=== PATIENT | female | born 1975 | race Caucasian/White ===

== ENCOUNTER 2020-02-23 06:41 | Outpatient (CLI) | payer MEDICARE, MEDICAID, OTHER ==
[2020-02-23 16:34] LABS: #Lymphocytes 1.8 thou/uL (1.20-3.40); #Monocytes 0.2 thou/uL (0.11-0.59); #Neutrophils 2.1 thou/uL (1.40-6.50); %Basophils 0.9 % (0.0-1.0); %Eosinophils 0.8 % (0.0-10.0); %Lymphocytes 42.3 % (21.0-51.0); %Monocytes 4.9 % (0.0-10.0); %Neutrophils 51.1 % (42.0-75.0); Hemoglobin 12.3 g/dL (12.0-16.0); Mean Corpuscular HGB CONC 33.4 g/dL (32.0-36.0); Mean Corpuscular Hemoglobin 28.9 pg (27.0-31.0); Mean Corpuscular Volume 86.3 fL (78.0-98.0); Mean Platelet Volume 6.8 fL (7.4-10.4); Platelet Count 235 thou/uL (130-400); RBC Distribution Width 12.5 % (11.5-14.5); Red Blood Cell (RBC) Count 4.28 mill/uL (4.20-5.40); White Blood Cell (WBC) Count 4.2 thou/uL (4.8-10.8)
[2020-02-23 16:50] LABS: Anion Gap 17 mmol/L (10-20); BUN (Urea Nitrogen) 6 mg/dL (7.0-18.7); Calc. Creatinine Clearance 0 mL/min (70-130); Calcium 7.6 mg/dL (7.8-10.44); Carbon Dioxide 29 mmol/L (22-29); Chloride 98 mmol/L (98-107); Estimated GFR-MDRD 68; Glucose 114 mg/dL (70-105); Potassium 3.3 mmol/L (3.5-5.1); Sodium 141 mmol/L (136-145)
[2020-02-24 13:47] LABS: SARS-CoV-2 MS2 Positive; SARS-CoV-2 N Gene Negative; SARS-CoV-2 S Gene Negative; SARS-CoV-2 orf1ab Negative
== END 2020-02-23 06:42 | disposition home or self-care (01) ==
LOC: LABBT 06:41
PROVIDERS: ATTEND Orthopaedic Surgery
DX: Z01.818 Encounter for other preprocedural examination (principal); Z11.59 Encounter for screening for other viral diseases; M75.102 Unspecified rotator cuff tear or rupture of left shoulder, not specified as traumatic
CPT/HCPCS: 80048; 85025; U0003; 87635; 93005; 93010

== ENCOUNTER 2020-02-27 06:08 | Day surgery (SDC) | payer MEDICARE, MEDICAID ==
[2020-02-20 17:02] VITALS: BMI 31.1
[2020-02-27] MEDS ORDERED: Fentanyl 100 MCG/2 ML VIAL ONE ×4 (06:44→10:30)
[2020-02-27] MEDS ORDERED: Midazolam HCl 2 mg/2 ml Vial ONE (06:44)
[2020-02-27] MEDS ORDERED: Lidocaine 1% w/Epinephrine 1:100K 20 ML VIAL ONE (07:02)
[2020-02-27] MEDS ORDERED: Clindamycin/D5W 600 mg/50 ml Premix Bag ONE (07:07)
[2020-02-27] MEDS ORDERED: Zolpidem Tartrate 5 MG TAB PO PRN (07:29)
[2020-02-27] MEDS ORDERED: Promethazine HCl 25 MG/ML VIAL IM PRN (07:29)
[2020-02-27] MEDS ORDERED: Ondansetron PF 4 MG/2 ML Vial IVP PRN (07:29)
[2020-02-27] MEDS ORDERED: Ropivacaine 0.2% 550 ML 550 ML NERVE BLCK SCH (07:29)
[2020-02-27] MEDS ORDERED: Fentanyl 100 MCG/2 ML VIAL SLOW IVP PRN (07:30)
[2020-02-27] MEDS ORDERED: Ondansetron PF 4 MG/2 ML Vial ONE (10:47)
[2020-02-27] MEDS ORDERED: Dexamethasone 20 MG/5 ML VIAL ONE (10:47)
[2020-02-27] MEDS ORDERED: Ropivacaine 0.2% HCl/PF (40 MG/20 ML VIAL) ONE (10:47)
[2020-02-27] MEDS ORDERED: Glycopyrrolate 0.2 MG/ML 5 ML SYRINGE ONE (10:47)
[2020-02-27] MEDS ORDERED: Rocuronium Bromide 10 MG/ML (10ML VIAL) ONE (10:47)
[2020-02-27] MEDS ORDERED: EPHEDRINE 25 MG/5 ML SYRINGE ONE (10:47)
[2020-02-27] MEDS ORDERED: Ropivacaine 0.5% HCl/PF (150 MG/30 ML VIAL) ONE (10:47)
[2020-02-27] MEDS ORDERED: PROPOFOL 200 MG/20 ML VIAL ONE (10:47)
[2020-02-27] MEDS ORDERED: Lidocaine 1% PF 5 ML VIAL ONE (10:47)
--- NOTE | 2020-03-01 09:22 | OP ---
DATE OF PROCEDURE: 02/27/2020 PREOPERATIVE DIAGNOSES: Left shoulder impingement, rotator cuff tear, and biceps tendon tearing and instability secondary to a degenerative SLAP tear. POSTOPERATIVE DIAGNOSES: Left shoulder impingement, rotator cuff tear, and biceps tendon tearing and instability secondary to a degenerative SLAP tear. PROCEDURES PERFORMED: 1. Left shoulder arthroscopic rotator cuff tear. 2. Left shoulder open biceps tenodesis. SKILLED NURSING CASE MANAGER: None. ESTIMATED BLOOD LOSS: Minimal. COMPLICATIONS: None. ANESTHESIA: preoperative block. IMPLANTS: A 4.75 BioComposite SwiveLock and a 7 x 23 BioComposite tenodesis screw. DISPOSITION: She did go to recovery room in stable condition. INDICATIONS: This is a 45-year-old female, who comes in complaining of pain and inability to use the arm that has been going on for a number of months. She has failed nonoperative treatment and at this time wished to have surgery. DESCRIPTION OF PROCEDURE: After all appropriate consent forms were explained and signed, she was taken back to the operating room and at this time was given general anesthetic. She was rolled into the right lateral decubitus position and all bony prominences were well padded. Axillary roll was placed underneath the right axilla and a aguillon bag was inflated to hold it in its position. The arm was taken through full range of motion and was then suspended with 10 pounds in standard arthroscopic fashion. The left shoulder and upper extremity were then prepped and draped in standard surgical fashion. Bony anatomical landmarks were drawn out and the subacromial space was then infiltrated with lidocaine and with epinephrine. Posterior portal was established. Scope was placed into the shoulder joint. Anterior working portal was then made using a needle localization technique. Diagnostic arthroscopy then commenced in the glenohumeral joint. At this time, the articular surfaces of the humeral head and glenoid were found to be pristine. The rotator cuff was noted to have some tearing and once it was debrided with a shaver, it was noted to have a punctate full-thickness tear in the back part of the supraspinatus or the leading edge of infraspinatus. The other partial tearing from this area was noted to be less than 30% of the tendon thickness. The labrum was found to be intact anteriorly and posteriorly. Both superior and posterior-superior, there was some significant degenerative labral tearing. There were some large flaps of tissue found into the joint. These were all debrided with a shaver back to a stable base. Subscapularis was intact. There were no loose bodies in the axillary pouch. At this time, a green cannula was placed anteriorly and an 18-gauge needle was used to wilson the biceps tendon and place a stitch through it. We then used the arthroscopic scissors to cut the biceps off the superior labrum. We then redirected the camera into the subacromial space. Lateral working portal was made. Bursa was removed from off the underlying cuff and the full-thickness cuff tear was noted. At this time, a PassPort cannula was placed into the lateral portal and at this time, we took our FiberTape and passed it in an inverted mattress fashion using the Scorpion device and pulled this down laterally for repair using a 4.75 BioComposite SwiveLock device. This closed our tear nicely and there was no need to use the extra suture in the SwiveLock. Prior to performing the rotator cuff repair, a bony decompression was performed using the SERFAS energy and the shaver . At this time, the scope was removed. The shoulder was drained. We then turned our attention to the biceps tendon. A 15 blade was used to make an incision down through skin. Bovie was used to coagulate any brisk venous bleeding. Deltoid fascia was opened sharply and finger dissection was used down to the underlying transverse humeral ligament. This was opened up and there was a copious amount of synovitis in the bicipital groove. This was all removed and coagulated. Biceps tendon was sutured. The intra-articular portion was cut off and removed from the field. At this time, we placed our pin, reamed with a 7-mm reamer to a depth of 25 and placed a 7 x 23 BioComposite Bio-Tenodesis screw in standard fashion. We then tied our sutures, so that the screw could not back out. At this time, we thoroughly irrigated and dried. We allowed the deltoid to close upon itself. The deltoid fascia was closed with Vicryl suture, followed by 2-0 Vicryl and nylon sutures to close the skin. Each portal was closed with simple nylon stitch as well. Bulky sterile dressing was applied. At this time, the patient was awakened and taken to the recovery room in stable condition. All counts were correct at the end of the case. She did receive preoperative IV antibiotics. Job ID: [id number]
== END 2020-02-27 12:10 | disposition home or self-care (01) ==
LOC: SDC 06:08
PROVIDERS: ATTEND Orthopaedic Surgery
PROC: 0LQ24ZZ Repair Left Shoulder Tendon, Percutaneous Endoscopic Approach (ICD-10-PCS; principal; 2020-02-27)
PROC: 0RNK4ZZ Release Left Shoulder Joint, Percutaneous Endoscopic Approach (ICD-10-PCS; 2020-02-27)
PROC: 0LS40ZZ Reposition Left Upper Arm Tendon, Open Approach (ICD-10-PCS; 2020-02-27)
PROC: 0RHK04Z Insertion of Internal Fixation Device into Left Shoulder Joint, Open Approach (ICD-10-PCS; 2020-02-27)
PROC: 3E0T3BZ Introduction of Anesthetic Agent into Peripheral Nerves and Plexi, Percutaneous Approach (ICD-10-PCS; 2020-02-27)
DX: M75.122 Complete rotator cuff tear or rupture of left shoulder, not specified as traumatic (principal); M25.812 Other specified joint disorders, left shoulder; S43.432A Superior glenoid labrum lesion of left shoulder, initial encounter; S46.112A Strain of muscle, fascia and tendon of long head of biceps, left arm, initial encounter; M25.312 Other instability, left shoulder; M81.0 Age-related osteoporosis without current pathological fracture; G89.29 Other chronic pain; F17.210 Nicotine dependence, cigarettes, uncomplicated; Z79.899 Other long term (current) drug therapy; Z88.0 Allergy status to penicillin; Z88.1 Allergy status to other antibiotic agents; Z88.5 Allergy status to narcotic agent; Z88.6 Allergy status to analgesic agent; Z88.8 Allergy status to other drugs, medicaments and biological substances; G89.18 Other acute postprocedural pain
CPT/HCPCS: 23430; 29827; 64416; A4306; C1713 ×2; J1100; J2001; J2250; J2405; J2704; J2795; J3010; J3490

== ENCOUNTER 2024-02-15 20:20 | Inpatient (IN) | payer OTHER, MEDICAID ==
[2024-02-15] MEDS ORDERED: Acetaminophen 500 MG TAB ONE (20:54)
[2024-02-15] MEDS ORDERED: Ketorolac Tromethamine 30 MG (1 mL) VIAL ONE (20:54)
[2024-02-15 21:39] LABS: #Basophils 0.03 10x3/uL (0.0-0.2); %Basophils 0.2 % (0.0-1.0); %Eosinophils 2.5 % (0.0-10.0); %Lymphocytes 17.6 % (21.0-51.0); %Monocytes 3.8 % (0.0-10.0); %Neutrophils 74.9 % (42.0-75.0); Hematocrit 36.5 % (36.0-47.0); Hemoglobin 11.9 g/dL (12.0-16.0); Mean Corpuscular HGB CONC 32.6 g/dL (32.0-36.0); Mean Corpuscular Hemoglobin 27.9 pg (27.0-31.0); Mean Corpuscular Volume 85.7 fL (78.0-98.0); Mean Platelet Volume 9.1 fL (7.4-10.4); Platelet Count 191 10x3/uL (130-400); RBC Distribution Width 16.6 % (11.5-14.5); Red Blood Cell (RBC) Count 4.26 mill/uL (4.20-5.40)
[2024-02-15 21:58] LABS: Acetaminophen Less than 10 mcg/mL (10.0-30.0); Alcohol Less than 10.0 mg/dL (Less than 10); Salicylate Less than 8.0 mg/dL (15.0-30.0)
[2024-02-15 22:07] LABS: Troponin I 0.014 ng/mL (< 0.028)
[2024-02-15 22:07] LABS: Influenza A by NAA Not Detected (NotDetected); Influenza B by NAA Not Detected (NotDetected); SARS-CoV-2 NAA Rapid Test Not Detected (NotDetected)
[2024-02-15 22:13] LABS: ALT (SGPT) 16 U/L (8-55); AST (SGOT) 19 U/L (5-34); Albumin 3.1 g/dL (3.5-5.0); Alkaline Phosphatase 72 U/L (40-110); Anion Gap 12 mmol/L (10-20); BUN (Urea Nitrogen) 8 mg/dL (9.8-20.1); Bilirubin, Total 0.5 mg/dL (0.2-1.2); Calc. Creatinine Clearance 0 mL/min (70-130); Calcium 7.7 mg/dL (7.8-10.44); Carbon Dioxide 22 mmol/L (22-29); Chloride 100 mmol/L (98-107); Estimated GFR 95; Globulin 3.3 g/dL (2.4-3.5); Glucose 100 mg/dL (70-105); Potassium 2.8 mmol/L (3.5-5.1); Protein, Total 6.4 g/dL (6.0-8.3); Sodium 131 mmol/L (136-145)
[2024-02-15 22:22] LABS: CK (CPK) 51 U/L (29-168)
[2024-02-15] MEDS ORDERED: Potassium Chloride 20 MEQ TAB ONE (22:41)
[2024-02-15] MEDS ORDERED: Morphine 4 MG/ML VIAL ONE (22:56)
[2024-02-15 23:59] LABS: Amphetamine Not Detected (NotDetected); Barbiturates Screen Not Detected (NotDetected); Benzodiazepine Screen Detected (NotDetected); Cocaine Metabolite Screen Not Detected (NotDetected); Methadone Not Detected (NotDetected); Methamphetamine Not Detected (NotDetected); Opiate Screen Detected (NotDetected); Oxycodone Screen Not Detected (NotDetected); Phencyclidine (PCP) Not Detected (NotDetected); THC/Cannabinoid Screen Not Detected (NotDetected); Tricyclic Screen Detected (NotDetected)
[2024-02-16 00:22] LABS: Bilirubin Negative (Negative); Blood, Urine Negative (Negative); CAUTI Indications for Culture Dysuria,urgency,freq; Clarity Turbid (Clear); Glucose, Urine (Dipstick) Normal (Negative); Ketone, Urine Negative (Negative); Leukocyte Negative Leu/uL (Negative); Nitrite Negative (Negative); Protein, Urine (Dipstick) Negative (Neg-Trace); RBC/HPF 0-3 HPF (0-3); Specific Gravity, Urine 1.005 (1.002-1.036); Urobilinogen Normal mg/dL (Less than 2); WBC/HPF None Seen HPF (0-3); pH, Urine 5.5 (5.0-9.0)
[2024-02-16 00:38] LABS: Bacteria/HPF 1+ HPF (None Seen); Urine Culture Reflex No No
[2024-02-16 01:23] VITALS: BMI 21.4
[2024-02-16] MEDS ORDERED: Ondansetron ODT 4 MG TAB SL PRN (01:30)
[2024-02-16] MEDS ORDERED: Ondansetron PF 4 MG/2 ML Vial IVP PRN (01:30)
[2024-02-16] MEDS: Sodium Chloride 0.9% 1,000 ML IV SCH (02:13)
[2024-02-16] MEDS ORDERED: Lidocaine 4% Patch TD PRN (02:22)
[2024-02-16] MEDS: Benzonatate 100 MG CAP PO PRN (02:36)
[2024-02-16] MEDS: Acetaminophen 325 MG TAB PO PRN (02:36)
[2024-02-16 08:40] LABS: #Basophils Less than 0.03 10x3/uL (0.0-0.2); %Basophils 0.2 % (0.0-1.0); %Eosinophils 2.7 % (0.0-10.0); %Lymphocytes 33.1 % (21.0-51.0); %Monocytes 5.7 % (0.0-10.0); %Neutrophils 57.6 % (42.0-75.0); Hematocrit 32.8 % (36.0-47.0); Hemoglobin 10.5 g/dL (12.0-16.0); Mean Corpuscular Hemoglobin 29.1 pg (27.0-31.0); Mean Corpuscular Volume 90.9 fL (78.0-98.0); Mean Platelet Volume 9.2 fL (7.4-10.4); Platelet Count 174 10x3/uL (130-400); RBC Distribution Width 17.1 % (11.5-14.5); Red Blood Cell (RBC) Count 3.61 mill/uL (4.20-5.40)
[2024-02-16 09:13] LABS: ALT (SGPT) 13 U/L (8-55); AST (SGOT) 16 U/L (5-34); Albumin 2.6 g/dL (3.5-5.0); Alkaline Phosphatase 61 U/L (40-110); Anion Gap 15 mmol/L (10-20); BUN (Urea Nitrogen) 7 mg/dL (9.8-20.1); Bilirubin, Total 0.3 mg/dL (0.2-1.2); Calc. Creatinine Clearance 93 mL/min (70-130); Calcium 6.9 mg/dL (7.8-10.44); Carbon Dioxide 18 mmol/L (22-29); Chloride 110 mmol/L (98-107); Estimated GFR 110; Globulin 2.8 g/dL (2.4-3.5); Glucose 82 mg/dL (70-105); Magnesium 0.9 mg/dL (1.6-2.6); Phosphorus 2.3 mg/dL (2.3-4.7); Potassium 3.2 mmol/L (3.5-5.1); Protein, Total 5.4 g/dL (6.0-8.3); Sodium 140 mmol/L (136-145)
[2024-02-16] MEDS: HYDROmorphone 2 MG TAB PO SCH (09:15)
[2024-02-16] MEDS ORDERED: HYDROmorphone 2 MG TAB PO PRN (09:35)
[2024-02-16] MEDS ORDERED: Promethazine 25 MG TAB PO PRN ×2 (09:35→09:57)
[2024-02-16] MEDS ORDERED: Calcium Carbonate 500 MG ChewTAB PO PRN (09:56)
[2024-02-16] MEDS ORDERED: Senokot S 8.6-50 MG TAB PO PRN (09:56)
[2024-02-16] MEDS: Ipratropium/Albuterol 3 ML NEB NEB SCH (10:21)
[2024-02-16] MEDS: Magnesium Sulfate In Water 4 GM in Premix 1 BAG IVPB SCH (10:43)
[2024-02-16] MEDS: Pantoprazole DR 40 MG TAB PO SCH (10:43)
[2024-02-16] MEDS: Calcium Carbonate 600 MG + Vit D TAB PO SCH ×2 (10:43→16:49)
[2024-02-16] MEDS: Cefepime 1 GM in Sodium Chloride 0.9% 100 ML IVPB SCH (10:43)
[2024-02-16 10:49] VITALS: BMI 21.4
[2024-02-16] MEDS ORDERED: Potassium Chloride 10 MEQ TAB PO SCH (12:00)
[2024-02-16] MEDS: Potassium Phosphate 30 MMOL in Sodium Chloride 0.9% 250 ML 250 ML IVPB SCH (12:12)
[2024-02-16] MEDS: Potassium Chloride 10 MEQ TAB PO SCH (12:19)
[2024-02-16] MEDS ORDERED: Naloxone HCl 0.4 mg/ml Vial IV PRN (15:31)
[2024-02-16] MEDS: Lactated Ringer's 1,000 ML IV SCH (16:49)
[2024-02-16] MEDS: Vancomycin HCl 750 MG in Sodium Chloride 0.9% 250 ML 250 ML IVPB SCH (16:50)
[2024-02-16] MEDS: diphenhydrAMINE 25 MG CAP PO SCH (17:40)
[2024-02-16] MEDS: Cefepime 2 GM in Sodium Chloride 0.9% 100 ML IVPB SCH (20:06)
[2024-02-16] MEDS: Heparin 5,000 UNITS/ML VIAL SC SCH (20:06)
[2024-02-16] MEDS: HYDROmorphone 2 MG TAB PO PRN (20:07)
[2024-02-16] MEDS ORDERED: Vancomycin 1 GM in Premix 1 BAG IVPB SCH (21:00)
[2024-02-17] MEDS: Acetaminophen 325 MG TAB PO PRN (01:27)
[2024-02-17 01:58] LABS: #Basophils Less than 0.03 10x3/uL (0.0-0.2); %Basophils 0.2 % (0.0-1.0); %Eosinophils 1.8 % (0.0-10.0); %Lymphocytes 22.8 % (21.0-51.0); %Monocytes 5.6 % (0.0-10.0); %Neutrophils 69.2 % (42.0-75.0); Hematocrit 32.4 % (36.0-47.0); Hemoglobin 10.4 g/dL (12.0-16.0); Mean Corpuscular HGB CONC 32.1 g/dL (32.0-36.0); Mean Corpuscular Hemoglobin 28.9 pg (27.0-31.0); Platelet Count 193 10x3/uL (130-400); RBC Distribution Width 17.3 % (11.5-14.5)
[2024-02-17 02:36] LABS: Lactic Acid 1.2 mmol/L (0.5-2.2)
[2024-02-17 04:04] LABS: Vancomycin, Random 12.8 ug/mL (See Comment)
[2024-02-17 04:22] LABS: ALT (SGPT) 7 U/L (8-55); AST (SGOT) 14 U/L (5-34); Albumin 2.8 g/dL (3.5-5.0); Alkaline Phosphatase 53 U/L (40-110); Anion Gap 13 mmol/L (10-20); BUN (Urea Nitrogen) 5 mg/dL (9.8-20.1); Bilirubin, Total 0.3 mg/dL (0.2-1.2); Calc. Creatinine Clearance 93 mL/min (70-130); Calcium 8.2 mg/dL (7.8-10.44); Carbon Dioxide 23 mmol/L (22-29); Chloride 110 mmol/L (98-107); Estimated GFR 110; Globulin 2.9 g/dL (2.4-3.5); Glucose 122 mg/dL (70-105); Magnesium 1.7 mg/dL (1.6-2.6); Phosphorus 1.7 mg/dL (2.3-4.7); Potassium 3.5 mmol/L (3.5-5.1); Protein, Total 5.7 g/dL (6.0-8.3); Sodium 142 mmol/L (136-145)
[2024-02-17] MEDS: Magnesium 2 GM/50 ML(in water) 2 GM in Premix 1 BAG IVPB SCH ×2 (05:17→10:15)
[2024-02-17] MEDS: PHOS-NAK 1 PKT PACK PO SCH (05:17)
[2024-02-17] MEDS: Pantoprazole DR 40 MG TAB PO SCH (09:33)
[2024-02-17] MEDS: Metoprolol Tartrate 25 MG TAB PO SCH ×2 (10:15→22:13)
[2024-02-17] MEDS: DULoxetine 60 MG CAP PO SCH (22:13)
[2024-02-18] MEDS: DULoxetine 60 MG CAP PO SCH (09:29)
[2024-02-18] MEDS ORDERED: Ipratropium/Albuterol 3 ML NEB NEB PRN (10:12)
[2024-02-18 10:34] LABS: #Basophils Less than 0.03 10x3/uL (0.0-0.2); %Basophils 0.3 % (0.0-1.0); %Eosinophils 0.6 % (0.0-10.0); %Lymphocytes 14.8 % (21.0-51.0); %Monocytes 4.5 % (0.0-10.0); %Neutrophils 79.3 % (42.0-75.0); Hematocrit 33.6 % (36.0-47.0); Hemoglobin 10.8 g/dL (12.0-16.0); Mean Corpuscular HGB CONC 32.1 g/dL (32.0-36.0); Mean Corpuscular Hemoglobin 29.2 pg (27.0-31.0); Mean Corpuscular Volume 90.8 fL (78.0-98.0); Mean Platelet Volume 9.2 fL (7.4-10.4); Platelet Count 214 10x3/uL (130-400); RBC Distribution Width 17.4 % (11.5-14.5)
[2024-02-18 10:55] LABS: Anion Gap 14 mmol/L (10-20); BUN (Urea Nitrogen) 4 mg/dL (9.8-20.1); Calc. Creatinine Clearance 100 mL/min (70-130); Calcium 8.2 mg/dL (7.8-10.44); Carbon Dioxide 23 mmol/L (22-29); Chloride 110 mmol/L (98-107); Estimated GFR 111; Glucose 90 mg/dL (70-105); Magnesium 1.8 mg/dL (1.6-2.6); Potassium 3.4 mmol/L (3.5-5.1); Sodium 144 mmol/L (136-145)
[2024-02-18] MEDS ORDERED: Albuterol 200 PUFF (6.7GM INHALER) INH PRN (14:44)
[2024-02-18] MEDS: oxyCODONE/Acetaminophen 5 mg/325 mg Tablet PO PRN (16:57)
[2024-02-18] MEDS: Baclofen 10 MG TAB PO PRN (21:45)
[2024-02-18] MEDS: Fioricet 325/50/40 mg Tablet PO SCH (21:45)
[2024-02-18] MEDS: tiZANidine HCl 4 MG TAB PO PRN (21:46)
[2024-02-18] MEDS: Diazepam 5 MG TAB PO SCH (21:46)
[2024-02-19 04:52] LABS: #Basophils 0.03 10x3/uL (0.0-0.2); %Basophils 0.4 % (0.0-1.0); %Eosinophils 3.7 % (0.0-10.0); %Lymphocytes 29.1 % (21.0-51.0); %Monocytes 7.2 % (0.0-10.0); %Neutrophils 58.9 % (42.0-75.0); Hematocrit 31.3 % (36.0-47.0); Hemoglobin 10.3 g/dL (12.0-16.0); Mean Corpuscular HGB CONC 32.9 g/dL (32.0-36.0); Mean Corpuscular Hemoglobin 29.2 pg (27.0-31.0); Mean Corpuscular Volume 88.7 fL (78.0-98.0); Mean Platelet Volume 9.9 fL (7.4-10.4); Platelet Count 209 10x3/uL (130-400); RBC Distribution Width 17.4 % (11.5-14.5); Red Blood Cell (RBC) Count 3.53 mill/uL (4.20-5.40)
[2024-02-19 05:33] LABS: Vancomycin, Random 20.9 ug/mL (See Comment)
[2024-02-19 05:40] LABS: Anion Gap 12 mmol/L (10-20); BUN (Urea Nitrogen) 8 mg/dL (9.8-20.1); Calc. Creatinine Clearance 89 mL/min (70-130); Calcium 8.8 mg/dL (7.8-10.44); Carbon Dioxide 21 mmol/L (22-29); Chloride 110 mmol/L (98-107); Estimated GFR 108; Glucose 124 mg/dL (70-105); Potassium 3.6 mmol/L (3.5-5.1); Sodium 139 mmol/L (136-145)
[2024-02-19] MEDS: Pantoprazole DR 40 MG TAB PO SCH (09:24)
[2024-02-19] MEDS: Estradiol 1 MG TAB PO SCH (09:26)
[2024-02-19 17:18] VITALS: BP 132/75; TEMP 98.4
== END 2024-02-19 19:00 | disposition home or self-care (01) | DRG 871 ==
LOC: ERS 20:20 → 2SW 23:51 → OBSVTOIN 02-17 10:40
PROVIDERS: ADMIT Student in an Organized Health Care Education/Training Program; ATTEND Internal Medicine
PROC: 3E03329 Introduction of Other Anti-infective into Peripheral Vein, Percutaneous Approach (ICD-10-PCS; 2024-02-16)
PROC: 4A00X4Z Measurement of Central Nervous Electrical Activity, External Approach (ICD-10-PCS; principal; 2024-02-18)
DX: A41.9 Sepsis, unspecified organism (principal); G93.41 Metabolic encephalopathy; E87.1 Hypo-osmolality and hyponatremia; J84.9 Interstitial pulmonary disease, unspecified; E83.42 Hypomagnesemia; E87.6 Hypokalemia; G89.4 Chronic pain syndrome; Z88.5 Allergy status to narcotic agent; Z88.8 Allergy status to other drugs, medicaments and biological substances; Z91.041 Radiographic dye allergy status; Z88.0 Allergy status to penicillin; Z79.899 Other long term (current) drug therapy; M81.0 Age-related osteoporosis without current pathological fracture; Z90.710 Acquired absence of both cervix and uterus; Z90.49 Acquired absence of other specified parts of digestive tract; Z96.653 Presence of artificial knee joint, bilateral; F17.210 Nicotine dependence, cigarettes, uncomplicated; Z82.49 Family history of ischemic heart disease and other diseases of the circulatory system; Z83.3 Family history of diabetes mellitus
CPT/HCPCS: 36415; 36416; 51701; 70450; 71045; 71250; 72125; 80048; 80053; 80202; 80306; 80307; 81001; 82550; 83605; 83735; 84100; 84443; 84484; 85025; 86141; 87040; 93005; 93010; 94760; 95700; 95711; 95819; 96361; 96365; 96366; 96367; 96368; 96372; 96374; 96375; 96376; G0378; J0692; J1644; J1885; J2270; J3370; J3475; J3490; J7050; J7120; J7620

== ENCOUNTER 2024-03-25 12:49 | Emergency (ER) | payer OTHER, MEDICAID | END 2024-03-25 13:26 | LOC: ERS 12:49 | DX: Z02.89 Encounter for other administrative examinations (principal) | CPT/HCPCS: 99282 ==

== ENCOUNTER 2024-04-21 15:31 | Inpatient (IN) | payer OTHER, MEDICAID, MEDICARE ==
[2024-04-21 16:22] LABS: #Basophils 0.06 10x3/uL (0.0-0.2); %Basophils 0.6 % (0.0-1.0); %Eosinophils 3.1 % (0.0-10.0); %Lymphocytes 31.6 % (21.0-51.0); %Neutrophils 60.4 % (42.0-75.0); Hematocrit 38.1 % (36.0-47.0); Mean Corpuscular HGB CONC 31.5 g/dL (32.0-36.0); Mean Corpuscular Hemoglobin 30.2 pg (27.0-31.0); Mean Platelet Volume 9.9 fL (7.4-10.4); Platelet Count 247 10x3/uL (130-400); RBC Distribution Width 13.7 % (11.5-14.5); Red Blood Cell (RBC) Count 3.97 mill/uL (4.20-5.40)
[2024-04-21 16:37] LABS: ALT (SGPT) 13 U/L (8-55); AST (SGOT) 28 U/L (5-34); Alkaline Phosphatase 45 U/L (40-110); Anion Gap 13 mmol/L (10-20); BUN (Urea Nitrogen) 7 mg/dL (9.8-20.1); Bilirubin, Total 0.3 mg/dL (0.2-1.2); Calc. Creatinine Clearance 0 mL/min (70-130); Calcium 8.3 mg/dL (7.8-10.44); Carbon Dioxide 26 mmol/L (22-29); Chloride 101 mmol/L (98-107); Estimated GFR 76; Globulin 3.3 g/dL (2.4-3.5); Glucose 107 mg/dL (70-105); Potassium 3.8 mmol/L (3.5-5.1); Protein, Total 6.3 g/dL (6.0-8.3); Sodium 136 mmol/L (136-145)
[2024-04-21] MEDS ORDERED: Naloxone HCl 0.4 mg/ml Vial ONE (16:50)
[2024-04-21] MEDS ORDERED: Naloxone HCl 2 mg/2 ml Syringe ONE (16:50)
[2024-04-21] MEDS ORDERED: Ondansetron PF 4 MG/2 ML Vial ONE (16:55)
[2024-04-21 17:47] LABS: Actual Bicarbonate (HCO3a) 22.2 mEq/L (22-28); Analyzer IN Cardio ER; Base Excess (BEa) -4.1 mEq/L (-2.0 to +3.0); CO2 Tension 45.5 mmHg (35.0-45.0); Calcium, Ionized (arterial) 1.04 mmol/L (1.12-1.30); Carboxyhemoglobin (COHb) 2.1 gm% (0.0-3.0); Hematocrit-ABG 36 % (36.0-47.0); Hemoglobin (Hb) 12.1 g/dL (12.0-16.0); O2 Tension (PaO2), arterial 60.9 mmHg (80.0-100.0); pH, Arterial 7.307 (7.35-7.45)
[2024-04-21 17:51] LABS: ALV-art Gradient 110.385 mmHg (0-20); Puncture Site Right Brachial art
[2024-04-21] MEDS ORDERED: Rocuronium Bromide 10 MG/ML (10ML VIAL) ONE (18:25)
[2024-04-21] MEDS ORDERED: Etomidate 40 MG (20 mL) VIAL ONE (18:25)
[2024-04-21 19:58] LABS: Magnesium 1.1 mg/dL (1.6-2.6)
[2024-04-21 19:59] LABS: Acetaminophen Less than 10 mcg/mL (10.0-30.0); Alcohol Less than 10.0 mg/dL (Less than 10); Salicylate Less than 8.0 mg/dL (15.0-30.0)
[2024-04-21 20:05] LABS: Troponin I Less than 0.010 ng/mL (< 0.028)
[2024-04-21 20:39] LABS: Bacteria/HPF 3+ HPF (None Seen); Bilirubin Negative (Negative); Blood, Urine Negative (Negative); CAUTI Indications for Culture Alt mental st,lethar; Clarity Turbid (Clear); Glucose, Urine (Dipstick) Normal (Negative); Ketone, Urine Negative (Negative); Leukocyte Negative Leu/uL (Negative); Nitrite Negative (Negative); Protein, Urine (Dipstick) Negative (Neg-Trace); RBC/HPF 0-3 HPF (0-3); Specific Gravity, Urine 1.009 (1.002-1.036); Squamous Epithelial 21-50 HPF (0-3); Urobilinogen Normal mg/dL (Less than 2); WBC/HPF 0-3 HPF (0-3); pH, Urine 5.5 (5.0-9.0)
[2024-04-21 20:40] LABS: Urine Culture Reflex No No
[2024-04-21] MEDS ORDERED: Cefepime 2 GM VIAL ONE (20:42)
[2024-04-21] MEDS ORDERED: Sodium Chloride 0.9% 100 ML ONE (20:42)
[2024-04-21 20:51] LABS: Amphetamine Not Detected (NotDetected); Barbiturates Screen Detected (NotDetected); Benzodiazepine Screen Detected (NotDetected); Cocaine Metabolite Screen Not Detected (NotDetected); Methadone Not Detected (NotDetected); Methamphetamine Not Detected (NotDetected); Opiate Screen Detected (NotDetected); Oxycodone Screen Detected (NotDetected); Phencyclidine (PCP) Not Detected (NotDetected); THC/Cannabinoid Screen Not Detected (NotDetected); Tricyclic Screen Detected (NotDetected)
[2024-04-21] MEDS ORDERED: Ondansetron PF 4 MG/2 ML Vial IVP PRN (23:03)
[2024-04-21] MEDS ORDERED: Acetaminophen 325 MG TAB PO PRN (23:03)
[2024-04-21] MEDS ORDERED: Acetaminophen/Codeine 30-300mg Tablet PO PRN (23:03)
[2024-04-21] MEDS ORDERED: Magnesium 2 GM/50 ML BAG (IN WATER) ONE (23:44)
[2024-04-21] MEDS ORDERED: Piperacillin/Tazobactam 3.375 GM in Sodium Chloride 0.9% 100 ML IVPB SCH (23:59)
[2024-04-22] MEDS: Vancomycin (BATCH) 1.5 GM in Premix 1 BAG IVPB SCH (00:33)
[2024-04-22] MEDS ORDERED: Electrolyte Replacement Protocol 1 EACH FS SCH (01:00)
[2024-04-22] MEDS ORDERED: Albuterol 2.5 MG (3 mL) NEB NEB PRN (01:04)
[2024-04-22] MEDS: Albumin 25% 25 GM (100 mL) BOT IVPB SCH (01:50)
[2024-04-22] MEDS: Magnesium 2 GM/50 ML(in water) 2 GM in Premix 1 BAG IVPB SCH (01:50)
[2024-04-22] MEDS: Lactated Ringer's 1,000 ML IV SCH (01:51)
[2024-04-22] MEDS: Nicotine 14 MG PATCH TD SCH (02:27)
[2024-04-22 03:07] VITALS: TEMP 97.6
[2024-04-22] MEDS ORDERED: NOREPINEPHRINE 8 MG/250 ML-D5W 250 ML IVPB SCH (03:15)
[2024-04-22] MEDS: Dexmedetomidine In 0.9 % NaCl 100 ML IVPB SCH (04:43)
[2024-04-22 05:11] LABS: #Basophils 0.03 10x3/uL (0.0-0.2); %Basophils 0.2 % (0.0-1.0); %Eosinophils 2.2 % (0.0-10.0); %Lymphocytes 21.6 % (21.0-51.0); %Monocytes 3.6 % (0.0-10.0); %Neutrophils 72.1 % (42.0-75.0); Hematocrit 38.3 % (36.0-47.0); Hemoglobin 12.2 g/dL (12.0-16.0); Mean Corpuscular HGB CONC 31.9 g/dL (32.0-36.0); Mean Corpuscular Hemoglobin 30.6 pg (27.0-31.0); Mean Platelet Volume 10.4 fL (7.4-10.4); Platelet Count 220 10x3/uL (130-400); RBC Distribution Width 13.5 % (11.5-14.5); Red Blood Cell (RBC) Count 3.99 mill/uL (4.20-5.40)
[2024-04-22 05:26] LABS: Vancomycin, Random 30.3 ug/mL (See Comment)
[2024-04-22 05:39] LABS: Anion Gap 9 mmol/L (10-20); BUN (Urea Nitrogen) 6 mg/dL (9.8-20.1); Calc. Creatinine Clearance 68 mL/min (70-130); Calcium 7.2 mg/dL (7.8-10.44); Carbon Dioxide 25 mmol/L (22-29); Chloride 111 mmol/L (98-107); Estimated GFR 106; Glucose 186 mg/dL (70-105); Magnesium 2.4 mg/dL (1.6-2.6); Potassium 3.1 mmol/L (3.5-5.1); Sodium 142 mmol/L (136-145)
[2024-04-22] MEDS ORDERED: Mometasone 100 MCG/Formoterol 5 MCG 120 PUFF INHALER INH SCH (06:30)
[2024-04-22] MEDS ORDERED: Ipratropium/Albuterol 3 ML NEB NEB SCH (07:00)
[2024-04-22 07:27] VITALS: BMI 18.5
[2024-04-22] MEDS ORDERED: Potassium Chloride 20 MEQ TAB PO SCH (08:00)
[2024-04-22] MEDS ORDERED: Cefepime 1 GM in Sodium Chloride 0.9% 100 ML IVPB SCH (09:00)
[2024-04-22] MEDS ORDERED: Enoxaparin 40 MG (0.4 mL) SYRINGE SC SCH (09:00)
[2024-04-22] MEDS ORDERED: Famotidine/PF 20 mg/2ml Vial SLOW IVP SCH (09:00)
[2024-04-22] MEDS ORDERED: Cefepime 2 GM in Sodium Chloride 0.9% 100 ML IVPB SCH (09:00)
[2024-04-22] MEDS ORDERED: Vancomycin 1 GM in Premix 1 BAG IVPB SCH (21:00)
== END 2024-04-22 06:45 | disposition left against medical advice (07) | DRG 871 ==
LOC: ERS 15:31 → CCU 22:03
PROVIDERS: ADMIT Hospitalist; ATTEND Internal Medicine
PROC: 3E03329 Introduction of Other Anti-infective into Peripheral Vein, Percutaneous Approach (ICD-10-PCS; principal; 2024-04-21)
PROC: 4A033R1 Measurement of Arterial Saturation, Peripheral, Percutaneous Approach (ICD-10-PCS; 2024-04-21)
PROC: 30233J1 Transfusion of Nonautologous Serum Albumin into Peripheral Vein, Percutaneous Approach (ICD-10-PCS; 2024-04-22)
PROC: 3E033XZ Introduction of Vasopressor into Peripheral Vein, Percutaneous Approach (ICD-10-PCS; 2024-04-22)
DX: A41.9 Sepsis, unspecified organism (principal); G93.41 Metabolic encephalopathy; J69.0 Pneumonitis due to inhalation of food and vomit; R65.21 Severe sepsis with septic shock; J96.01 Acute respiratory failure with hypoxia; E87.29 Other acidosis; G89.29 Other chronic pain; F19.10 Other psychoactive substance abuse, uncomplicated; M54.9 Dorsalgia, unspecified; F17.210 Nicotine dependence, cigarettes, uncomplicated; E83.42 Hypomagnesemia; J32.0 Chronic maxillary sinusitis; J32.1 Chronic frontal sinusitis; E87.6 Hypokalemia; I95.9 Hypotension, unspecified; Z53.29 Procedure and treatment not carried out because of patient's decision for other reasons; Z96.653 Presence of artificial knee joint, bilateral; Z90.710 Acquired absence of both cervix and uterus; Z88.5 Allergy status to narcotic agent; Z88.1 Allergy status to other antibiotic agents; Z88.0 Allergy status to penicillin; Z79.899 Other long term (current) drug therapy; Z98.890 Other specified postprocedural states
CPT/HCPCS: 36415; 36416; 36556; 36600; 51702; 70450; 71045; 80048; 80053; 80202; 80306; 80307; 81001; 82140; 82533; 82550; 82805; 83605; 83735; 84145; 84443; 84484; 85025; 87040; 87086; 96374; 96375; J0692; J2310; J2405; J3370; J3475; J7120; P9047

== ENCOUNTER 2024-06-01 19:36 | Inpatient (IN) | payer MEDICAID, OTHER ==
[2024-06-01] MEDS ORDERED: levETIRAcetam 500 MG (5 mL) VIAL ONE (20:03)
[2024-06-01 20:08] LABS: #Basophils 0.05 10x3/uL (0.0-0.2); #Eosinphils Less than 0.03 10x3/uL (0.0-0.7); %Basophils 0.3 % (0.0-1.0); %Eosinophils 0.1 % (0.0-10.0); %Lymphocytes 6.2 % (21.0-51.0); %Monocytes 3.3 % (0.0-10.0); %Neutrophils 89.7 % (42.0-75.0); Hematocrit 39.7 % (36.0-47.0); Hemoglobin 12.3 g/dL (12.0-16.0); Mean Corpuscular Hemoglobin 29.7 pg (27.0-31.0); Mean Corpuscular Volume 95.9 fL (78.0-98.0); Mean Platelet Volume 9.2 fL (7.4-10.4); Platelet Count 292 10x3/uL (130-400); RBC Distribution Width 13.3 % (11.5-14.5); Red Blood Cell (RBC) Count 4.14 mill/uL (4.20-5.40)
[2024-06-01 20:22] LABS: ALT (SGPT) Less than 5 U/L (8-55); AST (SGOT) 14 U/L (5-34); Albumin 3.4 g/dL (3.5-5.0); Alkaline Phosphatase 70 U/L (40-110); Anion Gap 25 mmol/L (10-20); BUN (Urea Nitrogen) 6 mg/dL (9.8-20.1); Bilirubin, Total 0.2 mg/dL (0.2-1.2); Calc. Creatinine Clearance 0 mL/min (70-130); Calcium 8.2 mg/dL (7.8-10.44); Carbon Dioxide 12 mmol/L (22-29); Chloride 105 mmol/L (98-107); Estimated GFR 88; Globulin 3.5 g/dL (2.4-3.5); Glucose 155 mg/dL (70-105); Potassium 2.9 mmol/L (3.5-5.1); Protein, Total 6.9 g/dL (6.0-8.3); Sodium 139 mmol/L (136-145)
[2024-06-01 21:01] LABS: Acetaminophen Less than 10 mcg/mL (Less than 10); Alcohol Less than 10.0 mg/dL (Less than 10); Salicylate Less than 8.0 mg/dL (Less than 8.0)
[2024-06-01 22:29] LABS: Actual Bicarbonate (HCO3v) 23.7 mEq/L (22-28); Analyzer IN Cardio ER; Base Excess -1.9 mEq/L (-2.0 to +3.0); Chloride (VBG) 106 mmol/L (98-106); Hematocrit-VBG 41 % (36.0-47.0); Hemoglobin (Hb) 13.8 g/dL (11.7-16.0); Potassium (VBG) 2.98 mmol/L (3.70-5.30); Sodium 139 mmol/L (133-146); pH (venous) 7.353 (7.32-7.43)
[2024-06-01 22:36] LABS: SARS-CoV-2 E Target Negative; SARS-CoV-2 N2 Target Negative; SARS-CoV-2 NAA Rapid Test Not Detected (NotDetected); SARS-CoV-2 RdRP gene Negative
[2024-06-01] MEDS ORDERED: Potassium Chloride 20 MEQ (100 mL) BAG ONE (23:08)
[2024-06-02 00:11] LABS: Bacteria/HPF None Seen HPF (None Seen); Bilirubin Negative (Negative); Blood, Urine Negative (Negative); CAUTI Indications for Culture Alt mental st,lethar; Clarity Clear (Clear); Glucose, Urine (Dipstick) Normal (Negative); Ketone, Urine Negative (Negative); Leukocyte Negative Leu/uL (Negative); Nitrite Negative (Negative); Protein, Urine (Dipstick) 10 mg/dL (Neg-Trace); RBC/HPF None Seen HPF (0-3); Specific Gravity, Urine 1.011 (1.002-1.036); Squamous Epithelial 0-3 HPF (0-3); Urobilinogen Normal mg/dL (Less than 2); WBC/HPF 0-3 HPF (0-3); pH, Urine 5.5 (5.0-9.0)
[2024-06-02 00:15] LABS: Pregnancy Test - Urine (BHCG) Negative (Negative); Pregu Control Background? CLEAR/WHITE (CLR/WHITE); Pregu Control Bar Appear? YES (CONTROL BAR); Specific Gravity 1.011 (1.002-1.036); Urine Culture Reflex No No
[2024-06-02 00:16] LABS: Amphetamine Not Detected (NotDetected); Barbiturates Screen Detected (NotDetected); Benzodiazepine Screen Detected (NotDetected); Cocaine Metabolite Screen Not Detected (NotDetected); Methadone Not Detected (NotDetected); Methamphetamine Not Detected (NotDetected); Opiate Screen Not Detected (NotDetected); Oxycodone Screen Detected (NotDetected); Phencyclidine (PCP) Not Detected (NotDetected); THC/Cannabinoid Screen Not Detected (NotDetected); Tricyclic Screen Not Detected (NotDetected)
[2024-06-02] MEDS ORDERED: Lorazepam 2 MG/ML VIAL SLOW IVP PRN (00:45)
[2024-06-02] MEDS ORDERED: Ipratropium/Albuterol 3 ML NEB NEB PRN (01:25)
[2024-06-02 02:02] LABS: #Basophils 0.04 10x3/uL (0.0-0.2); #Eosinphils Less than 0.03 10x3/uL (0.0-0.7); %Basophils 0.2 % (0.0-1.0); %Eosinophils 0.1 % (0.0-10.0); %Lymphocytes 9.8 % (21.0-51.0); %Monocytes 2.6 % (0.0-10.0); %Neutrophils 86.7 % (42.0-75.0); Hemoglobin 12.6 g/dL (12.0-16.0); Mean Corpuscular HGB CONC 32.3 g/dL (32.0-36.0); Mean Corpuscular Hemoglobin 29.7 pg (27.0-31.0); Mean Platelet Volume 9.2 fL (7.4-10.4); Platelet Count 278 10x3/uL (130-400); RBC Distribution Width 13.2 % (11.5-14.5); Red Blood Cell (RBC) Count 4.24 mill/uL (4.20-5.40)
[2024-06-02 02:24] LABS: ALT (SGPT) 6 U/L (8-55); AST (SGOT) 24 U/L (5-34); Albumin 3.5 g/dL (3.5-5.0); Alkaline Phosphatase 77 U/L (40-110); Anion Gap 16 mmol/L (10-20); BUN (Urea Nitrogen) 6 mg/dL (9.8-20.1); Bilirubin, Total 0.4 mg/dL (0.2-1.2); Calc. Creatinine Clearance 0 mL/min (70-130); Calcium 8.4 mg/dL (7.8-10.44); Carbon Dioxide 22 mmol/L (22-29); Chloride 105 mmol/L (98-107); Estimated GFR 101; Globulin 3.6 g/dL (2.4-3.5); Glucose 110 mg/dL (70-105); Protein, Total 7.1 g/dL (6.0-8.3); Sodium 140 mmol/L (136-145)
[2024-06-02] MEDS: Ondansetron PF 4 MG/2 ML Vial IVP PRN (02:42)
[2024-06-02] MEDS ORDERED: Ondansetron PF 4 MG/2 ML Vial ONE (02:43)
[2024-06-02] MEDS ORDERED: Diazepam 5 MG TAB PO SCH (09:00)
[2024-06-02] MEDS ORDERED: Doxycycline 100 MG VIAL ONE (10:49)
[2024-06-02] MEDS ORDERED: Sodium Chloride 0.9% 100 ML ONE (10:50)
[2024-06-02] MEDS ORDERED: Potassium Chloride 20 MEQ TAB ONE ×2 (10:54→14:59)
[2024-06-02] MEDS ORDERED: levETIRAcetam 500 MG TAB ONE (10:55)
[2024-06-02] MEDS ORDERED: Pantoprazole DR 40 MG TAB ONE (10:55)
[2024-06-02] MEDS ORDERED: Magnesium 2 GM/50 ML BAG (IN WATER) ONE (10:55)
[2024-06-02] MEDS ORDERED: DULoxetine 60 MG CAP ONE (10:55)
[2024-06-02] MEDS ORDERED: Enoxaparin 40 MG (0.4 mL) SYRINGE ONE (10:55)
[2024-06-02] MEDS: Potassium Chloride 20 MEQ TAB PO SCH (12:38)
[2024-06-02] MEDS: DULoxetine 60 MG CAP PO SCH (12:39)
[2024-06-02] MEDS: Pantoprazole DR 40 MG TAB PO SCH (12:39)
[2024-06-02] MEDS: levETIRAcetam 500 MG TAB PO SCH (12:39)
[2024-06-02] MEDS: Enoxaparin 40 MG (0.4 mL) SYRINGE SC SCH (12:40)
[2024-06-02] MEDS: tiZANidine HCl 4 MG TAB PO SCH (12:40)
[2024-06-02] MEDS: Doxycycline 100 MG in Sodium Chloride 0.9% 100 ML IVPB SCH (12:47)
[2024-06-02] MEDS: Magnesium 2 GM/50 ML(in water) 2 GM in Premix 1 BAG IVPB SCH (14:48)
[2024-06-02] MEDS ORDERED: Phenytoin Extended Release 100 MG CAP ONE ×2 (14:59→18:52)
[2024-06-02] MEDS: Phenytoin Extended Release 100 MG CAP PO SCH ×2 (15:02→22:18)
[2024-06-02] MEDS: levETIRAcetam 500 mg/5 ml Oral Solution PO SCH (22:36)
[2024-06-02 23:28] VITALS: BMI 18.0
[2024-06-03 05:59] LABS: #Basophils 0.06 10x3/uL (0.0-0.2); %Basophils 0.6 % (0.0-1.0); %Eosinophils 0.6 % (0.0-10.0); %Lymphocytes 23.6 % (21.0-51.0); %Monocytes 4.6 % (0.0-10.0); %Neutrophils 70.2 % (42.0-75.0); Hematocrit 39.9 % (36.0-47.0); Hemoglobin 12.8 g/dL (12.0-16.0); Mean Corpuscular HGB CONC 32.1 g/dL (32.0-36.0); Mean Corpuscular Hemoglobin 29.8 pg (27.0-31.0); Mean Corpuscular Volume 92.8 fL (78.0-98.0); Platelet Count 261 10x3/uL (130-400); RBC Distribution Width 13.5 % (11.5-14.5)
[2024-06-03 06:15] LABS: Anion Gap 16 mmol/L (10-20); BUN (Urea Nitrogen) 8 mg/dL (9.8-20.1); Calc. Creatinine Clearance 82 mL/min (70-130); Calcium 8.3 mg/dL (7.8-10.44); Carbon Dioxide 19 mmol/L (22-29); Chloride 110 mmol/L (98-107); Estimated GFR 108; Glucose 81 mg/dL (70-105); Potassium 3.5 mmol/L (3.5-5.1); Sodium 141 mmol/L (136-145)
[2024-06-03] MEDS: Phenytoin Extended Release 100 MG CAP PO SCH (06:53)
[2024-06-03] MEDS: levETIRAcetam 500 mg/5 ml Oral Solution PO SCH (08:24)
[2024-06-03] MEDS: Potassium Chloride 20 MEQ TAB PO SCH (09:26)
[2024-06-03 12:56] VITALS: BMI 18.0
[2024-06-03 15:07] LABS: Dilantin 8.5 ug/mL (10.0-20.0)
[2024-06-03] MEDS: Diazepam 5 MG TAB PO PRN (21:55)
[2024-06-04 04:34] LABS: #Basophils 0.06 10x3/uL (0.0-0.2); %Basophils 0.5 % (0.0-1.0); %Eosinophils 0.3 % (0.0-10.0); %Monocytes 5.3 % (0.0-10.0); %Neutrophils 69.5 % (42.0-75.0); Hematocrit 40.7 % (36.0-47.0); Hemoglobin 13.2 g/dL (12.0-16.0); Mean Corpuscular HGB CONC 32.4 g/dL (32.0-36.0); Mean Corpuscular Hemoglobin 29.8 pg (27.0-31.0); Mean Corpuscular Volume 91.9 fL (78.0-98.0); Mean Platelet Volume 9.4 fL (7.4-10.4); Platelet Count 322 10x3/uL (130-400); RBC Distribution Width 13.4 % (11.5-14.5); Red Blood Cell (RBC) Count 4.43 mill/uL (4.20-5.40)
[2024-06-04 04:41] LABS: Anion Gap 17 mmol/L (10-20); BUN (Urea Nitrogen) 10 mg/dL (9.8-20.1); Calc. Creatinine Clearance 74 mL/min (70-130); Calcium 9.1 mg/dL (7.8-10.44); Carbon Dioxide 19 mmol/L (22-29); Chloride 109 mmol/L (98-107); Estimated GFR 105; Glucose 100 mg/dL (70-105); Potassium 4.1 mmol/L (3.5-5.1); Sodium 141 mmol/L (136-145)
[2024-06-04] MEDS: Diazepam 5 MG TAB PO SCH (20:32)
[2024-06-04] MEDS: Doxycycline 100 MG CAP PO SCH (20:32)
[2024-06-05 06:55] LABS: #Basophils 0.04 10x3/uL (0.0-0.2); #Eosinphils Less than 0.03 10x3/uL (0.0-0.7); %Basophils 0.5 % (0.0-1.0); %Eosinophils 0.1 % (0.0-10.0); %Lymphocytes 27.2 % (21.0-51.0); %Monocytes 5.9 % (0.0-10.0); %Neutrophils 65.9 % (42.0-75.0); Hematocrit 42.1 % (36.0-47.0); Hemoglobin 13.6 g/dL (12.0-16.0); Mean Corpuscular HGB CONC 32.3 g/dL (32.0-36.0); Mean Corpuscular Hemoglobin 29.2 pg (27.0-31.0); Mean Corpuscular Volume 90.3 fL (78.0-98.0); Mean Platelet Volume 9.4 fL (7.4-10.4); Platelet Count 296 10x3/uL (130-400); RBC Distribution Width 13.7 % (11.5-14.5); Red Blood Cell (RBC) Count 4.66 mill/uL (4.20-5.40)
[2024-06-05 07:03] LABS: Anion Gap 19 mmol/L (10-20); BUN (Urea Nitrogen) 14 mg/dL (9.8-20.1); Calc. Creatinine Clearance 75 mL/min (70-130); Calcium 9.2 mg/dL (7.8-10.44); Carbon Dioxide 20 mmol/L (22-29); Chloride 108 mmol/L (98-107); Estimated GFR 106; Glucose 85 mg/dL (70-105); Potassium 3.5 mmol/L (3.5-5.1); Sodium 143 mmol/L (136-145)
[2024-06-06 05:06] LABS: #Basophils 0.05 10x3/uL (0.0-0.2); #Eosinphils Less than 0.03 10x3/uL (0.0-0.7); %Basophils 0.5 % (0.0-1.0); %Eosinophils 0.1 % (0.0-10.0); %Lymphocytes 27.5 % (21.0-51.0); %Monocytes 6.4 % (0.0-10.0); %Neutrophils 65.2 % (42.0-75.0); Hematocrit 41.9 % (36.0-47.0); Hemoglobin 13.6 g/dL (12.0-16.0); Mean Corpuscular HGB CONC 32.5 g/dL (32.0-36.0); Mean Corpuscular Volume 92.5 fL (78.0-98.0); Mean Platelet Volume 9.6 fL (7.4-10.4); Platelet Count 277 10x3/uL (130-400); RBC Distribution Width 13.7 % (11.5-14.5); Red Blood Cell (RBC) Count 4.53 mill/uL (4.20-5.40)
[2024-06-06 06:00] LABS: Anion Gap 15 mmol/L (10-20); BUN (Urea Nitrogen) 17 mg/dL (9.8-20.1); Calc. Creatinine Clearance 73 mL/min (70-130); Calcium 9.4 mg/dL (7.8-10.44); Carbon Dioxide 24 mmol/L (22-29); Chloride 107 mmol/L (98-107); Estimated GFR 105; Glucose 91 mg/dL (70-105); Potassium 3.1 mmol/L (3.5-5.1); Sodium 143 mmol/L (136-145)
[2024-06-06] MEDS: Potassium Chloride 20 MEQ TAB PO SCH (10:09)
[2024-06-06] MEDS: QUEtiapine 25 MG TAB PO SCH ×2 (13:08→20:56)
[2024-06-06] MEDS: traMADol HCl 50 MG TAB PO PRN (14:08)
[2024-06-07 05:58] LABS: #Basophils 0.05 10x3/uL (0.0-0.2); #Eosinphils Less than 0.03 10x3/uL (0.0-0.7); %Basophils 0.5 % (0.0-1.0); %Eosinophils 0.2 % (0.0-10.0); %Lymphocytes 36.6 % (21.0-51.0); %Monocytes 7.1 % (0.0-10.0); %Neutrophils 55.4 % (42.0-75.0); Hematocrit 41.9 % (36.0-47.0); Hemoglobin 13.7 g/dL (12.0-16.0); Mean Corpuscular HGB CONC 32.7 g/dL (32.0-36.0); Mean Corpuscular Hemoglobin 29.7 pg (27.0-31.0); Mean Corpuscular Volume 90.7 fL (78.0-98.0); Mean Platelet Volume 9.6 fL (7.4-10.4); Platelet Count 271 10x3/uL (130-400); RBC Distribution Width 13.8 % (11.5-14.5); Red Blood Cell (RBC) Count 4.62 mill/uL (4.20-5.40)
[2024-06-07 06:16] LABS: Anion Gap 14 mmol/L (10-20); BUN (Urea Nitrogen) 14 mg/dL (9.8-20.1); Calc. Creatinine Clearance 74 mL/min (70-130); Calcium 9.3 mg/dL (7.8-10.44); Carbon Dioxide 26 mmol/L (22-29); Chloride 108 mmol/L (98-107); Estimated GFR 105; Glucose 123 mg/dL (70-105); Sodium 145 mmol/L (136-145)
[2024-06-07 08:37] LABS: Magnesium 1.6 mg/dL (1.6-2.6)
[2024-06-07] MEDS: Potassium Chloride 20 MEQ TAB PO SCH ×2 (09:02→12:35)
[2024-06-07] MEDS: Estradiol 1 MG TAB PO SCH (20:01)
[2024-06-08] MEDS: Lorazepam 0.5 MG TAB PO PRN (01:05)
[2024-06-08 05:10] LABS: #Basophils 0.07 10x3/uL (0.0-0.2); %Basophils 0.6 % (0.0-1.0); %Eosinophils 0.6 % (0.0-10.0); %Monocytes 5.9 % (0.0-10.0); %Neutrophils 55.6 % (42.0-75.0); Hematocrit 44.4 % (36.0-47.0); Hemoglobin 14.4 g/dL (12.0-16.0); Mean Corpuscular HGB CONC 32.4 g/dL (32.0-36.0); Mean Corpuscular Hemoglobin 29.3 pg (27.0-31.0); Mean Corpuscular Volume 90.2 fL (78.0-98.0); Mean Platelet Volume 9.9 fL (7.4-10.4); Platelet Count 256 10x3/uL (130-400); RBC Distribution Width 13.7 % (11.5-14.5); Red Blood Cell (RBC) Count 4.92 mill/uL (4.20-5.40)
[2024-06-08 05:58] LABS: Anion Gap 15 mmol/L (10-20); BUN (Urea Nitrogen) 15 mg/dL (9.8-20.1); Calc. Creatinine Clearance 78 mL/min (70-130); Carbon Dioxide 25 mmol/L (22-29); Chloride 105 mmol/L (98-107); Estimated GFR 107; Glucose 123 mg/dL (70-105); Potassium 3.7 mmol/L (3.5-5.1); Sodium 141 mmol/L (136-145)
[2024-06-08] MEDS: Estradiol 1 MG TAB PO SCH (09:01)
[2024-06-09 07:46] LABS: #Basophils 0.04 10x3/uL (0.0-0.2); %Basophils 0.4 % (0.0-1.0); %Eosinophils 1.6 % (0.0-10.0); %Lymphocytes 37.1 % (21.0-51.0); %Monocytes 4.6 % (0.0-10.0); Hematocrit 43.8 % (36.0-47.0); Hemoglobin 14.5 g/dL (12.0-16.0); Mean Corpuscular HGB CONC 33.1 g/dL (32.0-36.0); Mean Corpuscular Hemoglobin 29.5 pg (27.0-31.0); Mean Platelet Volume 10.1 fL (7.4-10.4); Platelet Count 247 10x3/uL (130-400); RBC Distribution Width 13.4 % (11.5-14.5); Red Blood Cell (RBC) Count 4.92 mill/uL (4.20-5.40)
[2024-06-09] MEDS: Acetaminophen 325 MG TAB PO PRN (08:02)
[2024-06-09 08:07] LABS: Anion Gap 12 mmol/L (10-20); BUN (Urea Nitrogen) 14 mg/dL (9.8-20.1); Calc. Creatinine Clearance 81 mL/min (70-130); Calcium 9.1 mg/dL (7.8-10.44); Carbon Dioxide 29 mmol/L (22-29); Chloride 101 mmol/L (98-107); Estimated GFR 108; Glucose 101 mg/dL (70-105); Potassium 3.6 mmol/L (3.5-5.1); Sodium 138 mmol/L (136-145)
[2024-06-09 16:16] VITALS: BP 102/71; TEMP 98.6
== END 2024-06-09 17:13 | disposition home or self-care (01) | DRG 100 ==
LOC: ERS 19:36 → ERHOLD 06-02 00:49 → 2NO 06-02 20:28 → T4-B 06-03 21:28
PROVIDERS: ADMIT Internal Medicine; ATTEND Internal Medicine
DX: G40.201 Localization-related (focal) (partial) symptomatic epilepsy and epileptic syndromes with complex partial seizures, not intractable, with status epilepticus (principal); G93.41 Metabolic encephalopathy; F11.23 Opioid dependence with withdrawal; F17.210 Nicotine dependence, cigarettes, uncomplicated; G89.29 Other chronic pain; F41.9 Anxiety disorder, unspecified; F32.A Depression, unspecified; R13.10 Dysphagia, unspecified; Z88.5 Allergy status to narcotic agent; Z88.8 Allergy status to other drugs, medicaments and biological substances; Z88.0 Allergy status to penicillin; Z88.1 Allergy status to other antibiotic agents; Z79.899 Other long term (current) drug therapy; Z91.041 Radiographic dye allergy status; Z71.6 Tobacco abuse counseling
CPT/HCPCS: 36415; 36416; 51701; 70450; 71045; 80048; 80053; 80177; 80185; 80306; 80307; 81001; 81025; 82010; 82805; 83605; 83735; 84145; 84146; 85025; 87040; 87086; 96365; 96366; 96367; J1650; J1953; J2405; J3475; J3480; U0002

== ENCOUNTER 2024-07-10 10:45 | Emergency (ER) | payer OTHER, MEDICARE ==
[2024-07-10 12:18] LABS: #Basophils 0.07 10x3/uL (0.0-0.2); %Basophils 0.8 % (0.0-1.0); %Eosinophils 0.7 % (0.0-10.0); %Lymphocytes 20.2 % (21.0-51.0); %Monocytes 4.7 % (0.0-10.0); %Neutrophils 73.2 % (42.0-75.0); Hematocrit 42.4 % (36.0-47.0); Hemoglobin 13.9 g/dL (12.0-16.0); Mean Corpuscular HGB CONC 32.8 g/dL (32.0-36.0); Mean Corpuscular Volume 88.3 fL (78.0-98.0); Mean Platelet Volume 9.1 fL (7.4-10.4); Platelet Count 413 10x3/uL (130-400); RBC Distribution Width 14.7 % (11.5-14.5)
[2024-07-10 12:45] LABS: ALT (SGPT) 8 U/L (8-55); AST (SGOT) 15 U/L (5-34); Albumin 3.9 g/dL (3.5-5.0); Alkaline Phosphatase 78 U/L (40-110); Anion Gap 15 mmol/L (10-20); BUN (Urea Nitrogen) 8 mg/dL (9.8-20.1); Bilirubin, Total 0.4 mg/dL (0.2-1.2); Calc. Creatinine Clearance 0 mL/min (70-130); Calcium 9.1 mg/dL (7.8-10.44); Carbon Dioxide 21 mmol/L (22-29); Chloride 104 mmol/L (98-107); Estimated GFR 108; Globulin 3.7 g/dL (2.4-3.5); Glucose 134 mg/dL (70-105); Potassium 3.6 mmol/L (3.5-5.1); Protein, Total 7.6 g/dL (6.0-8.3); Sodium 136 mmol/L (136-145)
[2024-07-10 14:19] LABS: BHCG - Serum Negative (NEGATIVE); Pregs Control Background? CLEAR/WHITE (CLR/WHITE); Pregs Control Bar Appear? YES (CONTROL BAR)
[2024-07-10] MEDS ORDERED: Acetaminophen 500 MG TAB ONE (15:03)
[2024-07-10] MEDS ORDERED: Divalproex Sodium 250 MG (DR) TAB ONE ×2 (15:03→17:56)
[2024-07-10] MEDS ORDERED: Ondansetron ODT 4 MG TAB ONE (17:56)
== END 2024-07-10 17:02 | disposition home or self-care (01) ==
LOC: ERS 10:45
DX: R56.9 Unspecified convulsions (principal); F17.210 Nicotine dependence, cigarettes, uncomplicated
CPT/HCPCS: 71045; 83605; 84703; 93005; Q0162; 36415; 80053; 84443; 85025

== ENCOUNTER 2024-07-11 16:52 | Inpatient (IN) | payer MEDICARE, OTHER ==
[2024-07-11 18:11] LABS: #Basophils 0.06 10x3/uL (0.0-0.2); %Basophils 0.6 % (0.0-1.0); %Eosinophils 1.7 % (0.0-10.0); %Lymphocytes 29.9 % (21.0-51.0); %Monocytes 4.2 % (0.0-10.0); %Neutrophils 63.2 % (42.0-75.0); Hematocrit 42.3 % (36.0-47.0); Hemoglobin 13.6 g/dL (12.0-16.0); Mean Corpuscular HGB CONC 32.2 g/dL (32.0-36.0); Mean Corpuscular Hemoglobin 28.5 pg (27.0-31.0); Mean Corpuscular Volume 88.5 fL (78.0-98.0); Mean Platelet Volume 9.3 fL (7.4-10.4); Platelet Count 333 10x3/uL (130-400); RBC Distribution Width 14.6 % (11.5-14.5); Red Blood Cell (RBC) Count 4.78 mill/uL (4.20-5.40)
[2024-07-11 18:29] LABS: Acetaminophen Less than 10 mcg/mL (Less than 10); Alcohol Less than 10.0 mg/dL (Less than 10); Salicylate Less than 8.0 mg/dL (Less than 8.0)
[2024-07-11 19:26] LABS: Amphetamine Not Detected (NotDetected); Barbiturates Screen Detected (NotDetected); Benzodiazepine Screen Detected (NotDetected); Cocaine Metabolite Screen Not Detected (NotDetected); Methadone Not Detected (NotDetected); Methamphetamine Not Detected (NotDetected); Opiate Screen Not Detected (NotDetected); Oxycodone Screen Not Detected (NotDetected); Phencyclidine (PCP) Not Detected (NotDetected); THC/Cannabinoid Screen Not Detected (NotDetected); Tricyclic Screen Not Detected (NotDetected)
[2024-07-11 22:40] LABS: ALT (SGPT) 10 U/L (8-55); AST (SGOT) 33 U/L (5-34); Albumin 3.8 g/dL (3.5-5.0); Alkaline Phosphatase 70 U/L (40-110); Anion Gap 18 mmol/L (10-20); BUN (Urea Nitrogen) 8 mg/dL (9.8-20.1); Bilirubin, Total 0.3 mg/dL (0.2-1.2); Calc. Creatinine Clearance 0 mL/min (70-130); Carbon Dioxide 18 mmol/L (22-29); Chloride 106 mmol/L (98-107); Estimated GFR 107; Globulin 4.2 g/dL (2.4-3.5); Glucose 71 mg/dL (70-105); Potassium 5.1 mmol/L (3.5-5.1); Sodium 137 mmol/L (136-145)
[2024-07-12] MEDS: Valproate Sodium 500 MG in Sodium Chloride 0.9% 100 ML IVPB SCH ×2 (01:14→10:09)
[2024-07-12] MEDS: tiZANidine HCl 4 MG TAB PO PRN (02:06)
[2024-07-12] MEDS: Lidocaine 4% Patch TD SCH ×2 (02:06→02:14)
[2024-07-12] MEDS: Sodium Chloride 0.9% 1,000 ML IV SCH (02:14)
[2024-07-12] MEDS: Enoxaparin 40 MG (0.4 mL) SYRINGE SC SCH (10:08)
[2024-07-12] MEDS: Diazepam 5 MG TAB PO SCH (10:09)
[2024-07-12] MEDS: Transdermal Patch Removal TOP SCH (10:09)
[2024-07-12] MEDS: oxyCODONE/Acetaminophen 5 mg/325 mg Tablet PO SCH (14:11)
[2024-07-12] MEDS ORDERED: Ondansetron PF 4 MG/2 ML Vial IVP PRN (19:32)
[2024-07-12] MEDS: Ondansetron ODT 4 MG TAB PO PRN (19:48)
[2024-07-12] MEDS ORDERED: Non-Formulary Item 1 EACH (Naloxone Hcl [Narcan] 4 MG Spray) ALT NARE PRN (23:32)
[2024-07-13] MEDS: Morphine 2 MG/ML VIAL SLOW IVP SCH (02:12)
[2024-07-13 04:00] LABS: #Basophils 0.08 10x3/uL (0.0-0.2); %Basophils 1.1 % (0.0-1.0); %Eosinophils 2.1 % (0.0-10.0); %Lymphocytes 54.8 % (21.0-51.0); %Monocytes 5.3 % (0.0-10.0); %Neutrophils 36.4 % (42.0-75.0); Hematocrit 38.2 % (36.0-47.0); Hemoglobin 12.2 g/dL (12.0-16.0); Mean Corpuscular HGB CONC 31.9 g/dL (32.0-36.0); Mean Corpuscular Hemoglobin 28.4 pg (27.0-31.0); Mean Corpuscular Volume 88.8 fL (78.0-98.0); Mean Platelet Volume 9.8 fL (7.4-10.4); Platelet Count 276 10x3/uL (130-400); RBC Distribution Width 14.7 % (11.5-14.5)
[2024-07-13 04:33] LABS: Anion Gap 14 mmol/L (10-20); BUN (Urea Nitrogen) 9 mg/dL (9.8-20.1); Calc. Creatinine Clearance 78 mL/min (70-130); Calcium 8.4 mg/dL (7.8-10.44); Carbon Dioxide 22 mmol/L (22-29); Chloride 107 mmol/L (98-107); Estimated GFR 106; Glucose 105 mg/dL (70-105); Potassium 3.5 mmol/L (3.5-5.1); Sodium 139 mmol/L (136-145)
[2024-07-14 03:55] VITALS: BMI 18.8
[2024-07-14 04:47] LABS: #Basophils 0.03 10x3/uL (0.0-0.2); %Basophils 0.5 % (0.0-1.0); %Eosinophils 2.3 % (0.0-10.0); %Lymphocytes 56.7 % (21.0-51.0); %Monocytes 4.5 % (0.0-10.0); %Neutrophils 35.8 % (42.0-75.0); Hematocrit 38.1 % (36.0-47.0); Hemoglobin 12.3 g/dL (12.0-16.0); Mean Corpuscular HGB CONC 32.3 g/dL (32.0-36.0); Mean Corpuscular Hemoglobin 28.7 pg (27.0-31.0); Mean Corpuscular Volume 88.8 fL (78.0-98.0); Mean Platelet Volume 10.2 fL (7.4-10.4); Platelet Count 262 10x3/uL (130-400); RBC Distribution Width 14.6 % (11.5-14.5); Red Blood Cell (RBC) Count 4.29 mill/uL (4.20-5.40)
[2024-07-14 05:02] LABS: Anion Gap 12 mmol/L (10-20); BUN (Urea Nitrogen) 6 mg/dL (9.8-20.1); Calc. Creatinine Clearance 77 mL/min (70-130); Calcium 8.3 mg/dL (7.8-10.44); Carbon Dioxide 23 mmol/L (22-29); Chloride 109 mmol/L (98-107); Estimated GFR 109; Glucose 81 mg/dL (70-105); Potassium 3.4 mmol/L (3.5-5.1); Sodium 141 mmol/L (136-145)
[2024-07-14] MEDS: Enoxaparin 30 MG (0.3 mL) SYRINGE SC SCH (08:05)
[2024-07-14] MEDS ORDERED: Albuterol 200 PUFF (6.7GM INHALER) INH PRN (11:47)
[2024-07-14 11:59] VITALS: BP 110/69; TEMP 98.3
[2024-07-14] MEDS: Divalproex Sodium 250 MG ER.TAB PO SCH (14:15)
[2024-07-14] MEDS ORDERED: Divalproex Sodium 250 MG ER.TAB PO SCH (21:00)
[2024-07-14] MEDS ORDERED: Estradiol 1 MG TAB PO SCH (21:00)
[2024-07-15] MEDS ORDERED: DULoxetine 60 MG CAP PO SCH (09:00)
== END 2024-07-14 15:30 | disposition home or self-care (01) | DRG 101 ==
LOC: ERS 16:52 → PCU 23:20 → OBSVTOIN 07-14 11:48
PROVIDERS: ADMIT Internal Medicine; ATTEND Internal Medicine
DX: G40.409 Other generalized epilepsy and epileptic syndromes, not intractable, without status epilepticus (principal); G89.29 Other chronic pain; M54.50 Low back pain, unspecified; Z88.0 Allergy status to penicillin; Z91.041 Radiographic dye allergy status; Z88.8 Allergy status to other drugs, medicaments and biological substances; Z79.899 Other long term (current) drug therapy; J44.9 Chronic obstructive pulmonary disease, unspecified; F32.A Depression, unspecified; Z90.49 Acquired absence of other specified parts of digestive tract; Z90.710 Acquired absence of both cervix and uterus; Z98.890 Other specified postprocedural states; Z88.5 Allergy status to narcotic agent; F17.210 Nicotine dependence, cigarettes, uncomplicated
CPT/HCPCS: 36415; 80048; 80053; 80164; 80306; 80307; 84146; 85025; 96372; 96374; 96376; G0378; J1650; J2272; Q0162

== ENCOUNTER 2024-08-12 07:01 | Emergency (ER) | payer MEDICARE, OTHER ==
[2024-08-12] MEDS ORDERED: fentaNYL 50 mcg/mL 1 mL Vial ONE (08:32)
== END 2024-08-12 09:44 | disposition home or self-care (01) ==
LOC: ERS 07:01
DX: S70.01XA Contusion of right hip, initial encounter (principal); F17.210 Nicotine dependence, cigarettes, uncomplicated; W18.30XA Fall on same level, unspecified, initial encounter; Y92.009 Unspecified place in unspecified non-institutional (private) residence as the place of occurrence of the external cause
CPT/HCPCS: 72192; 73502; 73552; J3010; 96372

== ENCOUNTER 2024-09-11 10:00 | Inpatient (IN) | payer OTHER, MEDICAID ==
[2024-09-11 11:23] LABS: #Basophils 0.03 10x3/uL (0.0-0.2); #Eosinophils Less than 0.03 10x3/uL (0.0-0.7); %Basophils 0.3 % (0.0-1.0); %Eosinophils 0.2 % (0.0-10.0); %Lymphocytes 17.6 % (21.0-51.0); %Monocytes 8.4 % (0.0-10.0); %Neutrophils 73.1 % (42.0-75.0); Hematocrit 35.8 % (36.0-47.0); Hemoglobin 11.5 g/dL (12.0-16.0); Mean Corpuscular HGB CONC 32.1 g/dL (32.0-36.0); Mean Corpuscular Hemoglobin 27.8 pg (27.0-31.0); Mean Corpuscular Volume 86.5 fL (78.0-98.0); Mean Platelet Volume 9.5 fL (7.4-10.4); Platelet Count 183 10x3/uL (130-400); RBC Distribution Width 14.3 % (11.5-14.5); Red Blood Cell (RBC) Count 4.14 mill/uL (4.20-5.40)
[2024-09-11 11:27] LABS: Calc. Creatinine Clearance 0 mL/min (70-130); Estimated GFR 71; Magnesium 1.4 mg/dL (1.6-2.6)
[2024-09-11 11:28] LABS: Acetaminophen Less than 10 mcg/mL (Less than 10); Alcohol Less than 10.0 mg/dL (Less than 10); Salicylate Less than 8.0 mg/dL (Less than 8.0)
[2024-09-11 11:29] LABS: ALT (SGPT) 7 U/L (8-55); AST (SGOT) 21 U/L (5-34); Albumin 3.7 g/dL (3.5-5.0); Alkaline Phosphatase 65 U/L (40-110); Anion Gap 16 mmol/L (10-20); BUN (Urea Nitrogen) 19 mg/dL (9.8-20.1); Bilirubin, Total 0.7 mg/dL (0.2-1.2); Carbon Dioxide 22 mmol/L (22-29); Chloride 100 mmol/L (98-107); Globulin 3.8 g/dL (2.4-3.5); Glucose 93 mg/dL (70-105); Potassium 3.5 mmol/L (3.5-5.1); Protein, Total 7.5 g/dL (6.0-8.3); Sodium 134 mmol/L (136-145)
[2024-09-11 11:36] LABS: INR-International Normal Ratio 1.1; Prothrombin Time 14.4 sec (12.0-14.7)
[2024-09-11 11:37] LABS: PTT 27.5 sec (22.9-36.1)
[2024-09-11 11:42] LABS: Actual Bicarbonate (HCO3v) 24.4 mEq/L (22-28); Base Excess -1.8 mEq/L (-2.0 to +3.0); Calcium, Ionized (venous) 1.09 mmol/L (1.16-1.32); Chloride (VBG) 101 mmol/L (98-106); Hematocrit-VBG 36 % (36.0-47.0); Hemoglobin (Hb) 12.1 g/dL (11.7-16.0); Potassium (VBG) 3.46 mmol/L (3.70-5.30); Sodium 142 mmol/L (133-146); pH (venous) 7.329 (7.32-7.43)
[2024-09-11 12:17] LABS: Amphetamine Not Detected (NotDetected); Barbiturates Screen Not Detected (NotDetected); Benzodiazepine Screen Detected (NotDetected); Bilirubin Negative (Negative); Blood, Urine Negative (Negative); CAUTI Indications for Culture Alt mental st,lethar; Clarity Turbid (Clear); Cocaine Metabolite Screen Not Detected (NotDetected); Glucose, Urine (Dipstick) Normal (Negative); Ketone, Urine 10 mg/dL (Negative); Leukocyte 75 Leu/uL (Negative); Methadone Not Detected (NotDetected); Methamphetamine Not Detected (NotDetected); Nitrite Negative (Negative); Opiate Screen Not Detected (NotDetected); Oxycodone Screen Not Detected (NotDetected); Phencyclidine (PCP) Not Detected (NotDetected); Protein, Urine (Dipstick) 30 mg/dL (Neg-Trace); RBC/HPF 0-3 HPF (0-3); Specific Gravity, Urine 1.022 (1.002-1.036); Squamous Epithelial 21-50 HPF (0-3); THC/Cannabinoid Screen Not Detected (NotDetected); Tricyclic Screen Detected (NotDetected); Urobilinogen Normal mg/dL (Less than 2)
[2024-09-11 12:19] LABS: Bacteria/HPF 1+ HPF (None Seen)
[2024-09-11 12:20] LABS: Urine Culture Reflex No No
[2024-09-11] MEDS ORDERED: Sodium Chloride 0.9% 100 ML ONE (13:08)
[2024-09-11] MEDS ORDERED: Magnesium 2 GM/50 ML BAG (IN WATER) ONE (13:08)
[2024-09-11] MEDS ORDERED: cefTRIAXone (ROCEPHIN) 1 GM VIAL ONE (13:08)
[2024-09-11] MEDS ORDERED: Ondansetron ODT 4 MG TAB PO PRN (15:07)
[2024-09-11] MEDS ORDERED: Senokot S 8.6-50 MG TAB PO PRN (15:07)
[2024-09-11] MEDS ORDERED: Calcium Carbonate 500 MG ChewTAB PO PRN (15:07)
[2024-09-11] MEDS ORDERED: Acetaminophen 650 MG Suppository PR PRN (15:07)
[2024-09-11] MEDS ORDERED: Lorazepam 2 MG/ML VIAL SLOW IVP PRN (15:07)
[2024-09-11] MEDS ORDERED: Ondansetron PF 4 MG/2 ML Vial IVP PRN (15:07)
[2024-09-11] MEDS ORDERED: Electrolyte Replacement Protocol 1 EACH FS SCH (15:15)
[2024-09-11 15:42] LABS: Phosphorus 4.1 mg/dL (2.3-4.7)
[2024-09-11 18:38] VITALS: BMI 20.9
[2024-09-11] MEDS: Acetaminophen 325 MG TAB PO PRN (20:16)
[2024-09-11] MEDS: NS 0.9% w/ 20 MEQ KCL 1,000 ML/1,000 ML BAG IV SCH (20:17)
[2024-09-11] MEDS: Potassium Chloride 20 MEQ TAB PO SCH (20:27)
[2024-09-11] MEDS: Valproate Sodium 750 MG in Sodium Chloride 0.9% 100 ML IVPB SCH (21:22)
[2024-09-12 04:06] LABS: #Basophils 0.04 10x3/uL (0.0-0.2); %Basophils 0.6 % (0.0-1.0); %Eosinophils 1.5 % (0.0-10.0); %Lymphocytes 40.6 % (21.0-51.0); %Monocytes 6.6 % (0.0-10.0); %Neutrophils 50.2 % (42.0-75.0); Hematocrit 34.5 % (36.0-47.0); Hemoglobin 10.9 g/dL (12.0-16.0); Mean Corpuscular HGB CONC 31.6 g/dL (32.0-36.0); Mean Corpuscular Hemoglobin 28.1 pg (27.0-31.0); Mean Corpuscular Volume 88.9 fL (78.0-98.0); Mean Platelet Volume 9.5 fL (7.4-10.4); Platelet Count 170 10x3/uL (130-400); RBC Distribution Width 14.6 % (11.5-14.5); Red Blood Cell (RBC) Count 3.88 mill/uL (4.20-5.40)
[2024-09-12 04:25] LABS: Anion Gap 12 mmol/L (10-20); BUN (Urea Nitrogen) 13 mg/dL (9.8-20.1); Calc. Creatinine Clearance 68 mL/min (70-130); Carbon Dioxide 22 mmol/L (22-29); Chloride 109 mmol/L (98-107); Estimated GFR 92; Glucose 98 mg/dL (70-105); Sodium 139 mmol/L (136-145)
[2024-09-12] MEDS: Magnesium 2 GM/50 ML(in water) 2 GM in Premix 1 BAG IVPB SCH (08:41)
[2024-09-12 10:38] VITALS: BMI 20.9
[2024-09-12] MEDS ORDERED: Lidocaine 4% Patch TD PRN (19:27)
[2024-09-12] MEDS: Lidocaine 4% Patch TD PRN (20:44)
[2024-09-12] MEDS: Transdermal Patch Removal TOP SCH (21:17)
[2024-09-13] MEDS ORDERED: HYDROmorphone 2 MG TAB PO SCH (10:00)
[2024-09-13] MEDS ORDERED: oxyCODONE 5 MG TAB PO PRN (10:08)
[2024-09-13] MEDS: DULoxetine 60 MG CAP PO SCH ×2 (10:50→20:40)
[2024-09-13] MEDS: Baclofen 10 MG TAB PO SCH ×2 (10:50→20:39)
[2024-09-13] MEDS: oxyCODONE 5 MG TAB PO PRN (10:51)
[2024-09-13] MEDS: Divalproex Sodium DR 500 MG TAB PO SCH ×2 (10:51→20:40)
[2024-09-13] MEDS: Senokot S 8.6-50 MG TAB PO SCH (20:39)
[2024-09-13] MEDS: Multivit, Therapeutic 1 TAB PO SCH (20:40)
[2024-09-13] MEDS ORDERED: Senokot S 8.6-50 MG TAB PO SCH (21:00)
[2024-09-13] MEDS: Diazepam 5 MG TAB PO PRN (21:49)
[2024-09-14 02:54] LABS: Anion Gap 13 mmol/L (10-20); BUN (Urea Nitrogen) 11 mg/dL (9.8-20.1); Calc. Creatinine Clearance 71 mL/min (70-130); Calcium 8.7 mg/dL (7.8-10.44); Carbon Dioxide 27 mmol/L (22-29); Chloride 103 mmol/L (98-107); Estimated GFR 98; Glucose 133 mg/dL (70-105); Magnesium 1.6 mg/dL (1.6-2.6); Potassium 3.2 mmol/L (3.5-5.1); Sodium 140 mmol/L (136-145)
[2024-09-14] MEDS: Magnesium 2 GM/50 ML(in water) 2 GM in Premix 1 BAG IVPB SCH (03:51)
[2024-09-14] MEDS: Potassium Chloride 20 MEQ TAB PO SCH (05:26)
[2024-09-14] MEDS: FLU (Fluarix Triv) TS24-25(6MOS UP)/PF 45 MCG/0.5 ML Syringe IM ONE (14:33)
[2024-09-14] MEDS: Calcium Carbonate 600 MG + Vit D TAB PO SCH (17:37)
[2024-09-15 04:11] LABS: #Basophils 0.03 10x3/uL (0.0-0.2); %Basophils 0.4 % (0.0-1.0); %Eosinophils 4.6 % (0.0-10.0); %Lymphocytes 48.1 % (21.0-51.0); %Monocytes 6.3 % (0.0-10.0); %Neutrophils 39.7 % (42.0-75.0); Hematocrit 36.8 % (36.0-47.0); Hemoglobin 11.7 g/dL (12.0-16.0); Mean Corpuscular HGB CONC 31.8 g/dL (32.0-36.0); Mean Corpuscular Hemoglobin 27.9 pg (27.0-31.0); Mean Corpuscular Volume 87.8 fL (78.0-98.0); Platelet Count 203 10x3/uL (130-400); RBC Distribution Width 14.6 % (11.5-14.5); Red Blood Cell (RBC) Count 4.19 mill/uL (4.20-5.40)
[2024-09-15 04:46] LABS: Anion Gap 14 mmol/L (10-20); BUN (Urea Nitrogen) 8 mg/dL (9.8-20.1); Calc. Creatinine Clearance 87 mL/min (70-130); Carbon Dioxide 27 mmol/L (22-29); Chloride 101 mmol/L (98-107); Estimated GFR 108; Glucose 90 mg/dL (70-105); Magnesium 1.8 mg/dL (1.6-2.6); Potassium 3.8 mmol/L (3.5-5.1); Sodium 138 mmol/L (136-145)
[2024-09-15] MEDS: Magnesium 2 GM/50 ML(in water) 2 GM in Premix 1 BAG IVPB SCH (08:54)
[2024-09-16 04:21] LABS: Anion Gap 15 mmol/L (10-20); BUN (Urea Nitrogen) 14 mg/dL (9.8-20.1); Calc. Creatinine Clearance 62 mL/min (70-130); Calcium 9.2 mg/dL (7.8-10.44); Carbon Dioxide 27 mmol/L (22-29); Chloride 100 mmol/L (98-107); Estimated GFR 83; Glucose 120 mg/dL (70-105); Magnesium 2.1 mg/dL (1.6-2.6); Potassium 4.3 mmol/L (3.5-5.1); Sodium 138 mmol/L (136-145)
[2024-09-16 12:14] VITALS: TEMP 98.1
[2024-09-16 13:30] VITALS: BP 107/61
== END 2024-09-16 13:20 | disposition home or self-care (01) | DRG 100 ==
LOC: ERS 10:00 → 2SE 14:02
PROVIDERS: ADMIT Internal Medicine; ATTEND Internal Medicine
PROC: 4A00X4Z Measurement of Central Nervous Electrical Activity, External Approach (ICD-10-PCS; principal; 2024-09-15)
DX: G40.909 Epilepsy, unspecified, not intractable, without status epilepticus (principal); G93.41 Metabolic encephalopathy; S22.42XA Multiple fractures of ribs, left side, initial encounter for closed fracture; G93.49 Other encephalopathy; R44.3 Hallucinations, unspecified; E87.1 Hypo-osmolality and hyponatremia; J44.9 Chronic obstructive pulmonary disease, unspecified; F41.9 Anxiety disorder, unspecified; F32.A Depression, unspecified; E83.42 Hypomagnesemia; E87.6 Hypokalemia; N18.2 Chronic kidney disease, stage 2 (mild); G89.4 Chronic pain syndrome; X58.XXXA Exposure to other specified factors, initial encounter; M81.0 Age-related osteoporosis without current pathological fracture; F17.210 Nicotine dependence, cigarettes, uncomplicated; Z96.653 Presence of artificial knee joint, bilateral; Y93.89 Activity, other specified; Y92.89 Other specified places as the place of occurrence of the external cause; Z88.8 Allergy status to other drugs, medicaments and biological substances; Z88.5 Allergy status to narcotic agent; Z88.0 Allergy status to penicillin; Z91.041 Radiographic dye allergy status; Z91.018 Allergy to other foods; Z90.710 Acquired absence of both cervix and uterus; Z90.49 Acquired absence of other specified parts of digestive tract; Z79.899 Other long term (current) drug therapy
CPT/HCPCS: 36415; 36416; 51702; 62270; 70450; 71045; 72100; 80048; 80053; 80164; 80306; 80307; 81001; 82140; 82805; 83605; 83735; 84100; 84146; 85025; 85610; 85730; 87040; 87086; 93005; 95700; 95711; 95957; 96361; 96365; 96367; J0696; J3475; J3480

== ENCOUNTER 2024-09-24 11:35 | Inpatient (IN) | payer OTHER, MEDICAID ==
[2024-09-24 12:31] LABS: Actual Bicarbonate (HCO3a) 17.4 mEq/L (22-28); Analyzer IN Cardio ER; Base Excess (BEa) -13.3 mEq/L (-2.0 to +3.0); Hematocrit-ABG 35 % (36.0-47.0); Hemoglobin (Hb) 11.8 g/dL (12.0-16.0); O2 Tension (PaO2), arterial 167.8 mmHg (80.0-100.0)
[2024-09-24 12:33] LABS: CO2 Tension 64.4 mmHg (35.0-45.0); Potassium - ABG Lab 6.86 mmol/L (3.70-5.30); Puncture Site Right Radial artery
[2024-09-24 13:24] LABS: #Basophils 0.05 10x3/uL (0.0-0.2); #Eosinophils Less than 0.03 10x3/uL (0.0-0.7); %Basophils 0.4 % (0.0-1.0); %Eosinophils 0.1 % (0.0-10.0); %Lymphocytes 10.4 % (21.0-51.0); %Neutrophils 77.6 % (42.0-75.0); Hematocrit 37.4 % (36.0-47.0); Hemoglobin 10.9 g/dL (12.0-16.0); Mean Corpuscular HGB CONC 29.1 g/dL (32.0-36.0); Mean Corpuscular Hemoglobin 28.4 pg (27.0-31.0); Mean Corpuscular Volume 97.4 fL (78.0-98.0); Mean Platelet Volume 9.8 fL (7.4-10.4); Platelet Count 169 10x3/uL (130-400); RBC Distribution Width 15.2 % (11.5-14.5); Red Blood Cell (RBC) Count 3.84 mill/uL (4.20-5.40)
[2024-09-24 13:37] LABS: INR-International Normal Ratio 2.2; Prothrombin Time 24.1 sec (12.0-14.7)
[2024-09-24 13:38] LABS: PTT 40.5 sec (22.9-36.1)
[2024-09-24 13:39] LABS: Acetaminophen Less than 10 mcg/mL (Less than 10); Alcohol 10.3 mg/dL (Less than 10); Salicylate Less than 8.0 mg/dL (Less than 8.0)
[2024-09-24 13:52] LABS: ALT (SGPT) 3994 U/L (Less than 34)
[2024-09-24 13:56] LABS: Troponin I 1.955 ng/mL (< 0.028)
[2024-09-24 14:12] LABS: AST (SGOT) Greater than 4001 U/L (11-34); Albumin 2.8 g/dL (3.1-4.5); Alkaline Phosphatase 155 U/L (40-110); Anion Gap 27 mmol/L (10-20); BUN (Urea Nitrogen) 27 mg/dL (9.8-20.1); Bilirubin, Total 0.2 mg/dL (0.3-1.2); Calc. Creatinine Clearance 0 mL/min (70-130); Calcium 6.8 mg/dL (7.8-10.44); Carbon Dioxide 17 mmol/L (22-29); Chloride 103 mmol/L (98-107); Estimated GFR 14; Globulin 3.5 g/dL (2.4-3.5); Glucose 112 mg/dL (70-105); Potassium 7.7 mmol/L (3.5-5.1); Protein, Total 6.3 g/dL (6.0-8.3); Sodium 139 mmol/L (136-145)
[2024-09-24] MEDS ORDERED: NACL IV SCH (14:15)
[2024-09-24] MEDS ORDERED: SODIUM BICARBONATE IV SCH (14:15)
[2024-09-24] MEDS ORDERED: DEXTROSE IV SCH (14:15)
[2024-09-24] MEDS ORDERED: Sodium Bicarbonate 50 MEQ in Dextrose 5 %-0.45 % NaCl 1,000 ML IV SCH (14:45)
[2024-09-24] MEDS ORDERED: Vasopressin In 0.9 % NaCl 40 UNIT in Premix 1 BAG IV SCH (15:15)
[2024-09-24 15:58] LABS: Amphetamine Not Detected (NotDetected); Bacteria/HPF None Seen HPF (None Seen); Barbiturates Screen Not Detected (NotDetected); Benzodiazepine Screen Detected (NotDetected); Bilirubin Negative (Negative); Blood, Urine Negative (Negative); CAUTI Indications for Culture Alt mental st,lethar; Calcium Oxalate Crystals 2+ HPF (None Seen); Clarity Clear (Clear); Cocaine Metabolite Screen Not Detected (NotDetected); Glucose, Urine (Dipstick) Normal (Negative); Ketone, Urine Negative (Negative); Leukocyte Negative Leu/uL (Negative); Methadone Not Detected (NotDetected); Methamphetamine Not Detected (NotDetected); Nitrite Negative (Negative); Opiate Screen Detected (NotDetected); Oxycodone Screen Detected (NotDetected); Phencyclidine (PCP) Not Detected (NotDetected); Protein, Urine (Dipstick) 20 mg/dL (Neg-Trace); RBC/HPF 0-3 HPF (0-3); Specific Gravity, Urine 1.029 (1.002-1.036); Squamous Epithelial 0-3 HPF (0-3); THC/Cannabinoid Screen Not Detected (NotDetected); Tricyclic Screen Detected (NotDetected); Urobilinogen Normal mg/dL (Less than 2); WBC/HPF 0-3 HPF (0-3)
[2024-09-24] MEDS ORDERED: Fentanyl CADD 100 ML IV SCH (16:00)
[2024-09-24 16:02] LABS: Urine Culture Reflex No No
[2024-09-24 16:11] LABS: Lactic Acid 11.71 mmol/L (0.50-2.20)
[2024-09-24] MEDS ORDERED: Ondansetron PF 4 MG/2 ML Vial IVP PRN (16:42)
[2024-09-24] MEDS ORDERED: Communication Order-Pharmacy FS ONE (16:42)
[2024-09-24 17:11] LABS: Troponin I 2.032 ng/mL (< 0.028)
[2024-09-24] MEDS ORDERED: Lorazepam 2 MG/ML VIAL SLOW IVP PRN (17:14)
[2024-09-24] MEDS ORDERED: Valproate Sodium 1,000 MG in Sodium Chloride 0.9% 100 ML IVPB SCH (17:25)
[2024-09-24 18:22] LABS: #Basophils Less than 0.03 10x3/uL (0.0-0.2); #Eosinophils Less than 0.03 10x3/uL (0.0-0.7); %Basophils 0.1 % (0.0-1.0); %Eosinophils 0.1 % (0.0-10.0); %Lymphocytes 17.8 % (21.0-51.0); %Monocytes 6.9 % (0.0-10.0); %Neutrophils 73.9 % (42.0-75.0); Hematocrit 34.9 % (36.0-47.0); Hemoglobin 10.4 g/dL (12.0-16.0); Mean Corpuscular HGB CONC 29.8 g/dL (32.0-36.0); Mean Corpuscular Hemoglobin 28.8 pg (27.0-31.0); Mean Corpuscular Volume 96.7 fL (78.0-98.0); Mean Platelet Volume 9.5 fL (7.4-10.4); Platelet Count 116 10x3/uL (130-400); RBC Distribution Width 14.8 % (11.5-14.5); Red Blood Cell (RBC) Count 3.61 mill/uL (4.20-5.40)
[2024-09-24 18:39] LABS: CK (CPK) 910 U/L (29-168); Lipase 43 U/L (8-78)
[2024-09-24 19:01] LABS: Free T4 (Free Thyroxine) 0.77 ng/dL (0.70-1.48); Thyroid Stimulating Hormone 1.921 uIU/mL (0.35-4.94)
[2024-09-24] MEDS ORDERED: Ventilator Sedation Protocol 1 EACH FS SCH (19:15)
[2024-09-24 19:20] LABS: Troponin I 2.093 ng/mL (< 0.028)
[2024-09-24] MEDS ORDERED: DISCONTINUE PREVIOUS NARCOTIC PAIN MEDICATIONS AND BENZODIAZEPINES FS SCH (19:45)
[2024-09-24] MEDS ORDERED: Propofol 1,000 MG/100 ML VIAL IV PRN (19:45)
[2024-09-24] MEDS ORDERED: Propofol BOLUS 1,000 MG/100 ML VIAL IV PRN (19:45)
[2024-09-24] MEDS ORDERED: Morphine 2 MG/ML VIAL SLOW IVP PRN (19:45)
[2024-09-24] MEDS ORDERED: Fentanyl BOLUS 250 ML IVPB PRN (19:45)
[2024-09-24] MEDS: levETIRAcetam 500 MG (5 mL) VIAL SLOW IVP SCH (19:55)
[2024-09-24] MEDS: Vasopressin In 0.9 % NaCl 100 ML IV SCH (19:56)
[2024-09-24] MEDS: NOREPINEPHRINE 8 MG/250 ML-D5W 250 ML IVPB SCH (19:56)
[2024-09-24] MEDS: Sodium Bicarbonate 150 MEQ in Dextrose 5% in Water 1,000 ML IV SCH (20:15)
[2024-09-24 20:23] LABS: Chloride 103 mmol/L (98-107); Potassium 5.1 mmol/L (3.5-5.1); Sodium 142 mmol/L (136-145)
[2024-09-24] MEDS ORDERED: Calcium Gluconate 4.6 MEQ in Sodium Chloride 0.9% 100 ML IVPB ONE (20:30)
[2024-09-24 20:46] LABS: Globulin 3.1 g/dL (2.4-3.5)
[2024-09-24 20:49] LABS: Alkaline Phosphatase 149 U/L (40-110); Bilirubin, Total 0.3 mg/dL (0.3-1.2)
[2024-09-24 20:50] LABS: BUN (Urea Nitrogen) 29 mg/dL (9.8-20.1); Calc. Creatinine Clearance 16 mL/min (70-130); Estimated GFR 16
[2024-09-24] MEDS ORDERED: Divalproex Sodium DR 500 MG TAB PO SCH (21:00)
[2024-09-24] MEDS ORDERED: Baclofen 10 MG TAB PO SCH ×2 (21:00)
[2024-09-24] MEDS ORDERED: Famotidine/PF 20 mg/2ml Vial SLOW IVP SCH (21:00)
[2024-09-24 21:09] LABS: Albumin 2.2 g/dL (3.1-4.5); Calcium 6.4 mg/dL (7.8-10.44); Carbon Dioxide 14 mmol/L (22-29); Glucose 182 mg/dL (70-105); Protein, Total 5.1 g/dL (6.0-8.3)
[2024-09-24 21:10] LABS: Anion Gap 29 mmol/L (10-20)
[2024-09-24 21:19] LABS: ALT (SGPT) 4862 U/L (Less than 34); AST (SGOT) Greater than 4202 U/L (11-34)
[2024-09-24] MEDS: Cefepime 2 GM in Sodium Chloride 0.9% 100 ML IVPB SCH (21:20)
[2024-09-24] MEDS: Hydrocortisone Sod Succ/PF 100 mg/2 ml Vial IVP SCH (21:20)
[2024-09-24] MEDS: Lactulose 20 GM (30 mL) UDCUP PO SCH (21:21)
[2024-09-24] MEDS: Ventilator Sedation Protocol 1 EACH FS ONE (22:05)
[2024-09-24] MEDS: Heparin 5,000 UNITS/ML VIAL SC SCH (22:06)
[2024-09-24 22:07] LABS: Critical Call Chem-Lactate D; Lactic Acid 11.51 mmol/L (0.50-2.20)
[2024-09-24] MEDS: metroNIDAZOLE 500 MG in Premix 1 BAG IVPB SCH (22:07)
[2024-09-24] MEDS: Vancomycin (BATCH) 1.25 GM in Premix 1 BAG IVPB SCH (22:07)
[2024-09-24] MEDS: CALCIUM GLUC 1 GM/NS 50 ML 1 GM in Premix 1 BAG IVPB SCH (22:07)
[2024-09-24] MEDS: Ipratropium/Albuterol 3 ML NEB NEB SCH (22:12)
[2024-09-24 23:31] LABS: Albumin 2.2 g/dL (3.1-4.5); Alkaline Phosphatase 146 U/L (40-110); Anion Gap 27 mmol/L (10-20); BUN (Urea Nitrogen) 32 mg/dL (9.8-20.1); Bilirubin, Total 0.3 mg/dL (0.3-1.2); Calc. Creatinine Clearance 15 mL/min (70-130); Calcium 6.4 mg/dL (7.8-10.44); Carbon Dioxide 17 mmol/L (22-29); Chloride 103 mmol/L (98-107); Estimated GFR 15; Glucose 260 mg/dL (70-105); Potassium 5.2 mmol/L (3.5-5.1); Protein, Total 5.2 g/dL (6.0-8.3); Sodium 142 mmol/L (136-145)
[2024-09-24] MEDS ORDERED: Dextrose 50% Abboject 50 ML SYRINGE SLOW IVP PRN (23:38)
[2024-09-24 23:39] LABS: ALT (SGPT) 5710 U/L (Less than 34)
[2024-09-25] MEDS: Insulin Regular, Human 100 UNIT/ML 10 ML VIAL IVP SCH ×2 (00:47→21:25)
[2024-09-25] MEDS: Calcium Chloride 13.6 MEQ in Sodium Chloride 0.9% 100 ML IVPB SCH ×2 (00:47→21:23)
[2024-09-25 01:05] LABS: Lactic Acid 10.82 mmol/L (0.50-2.20)
[2024-09-25 01:07] LABS: Albumin 2.1 g/dL (3.1-4.5); Alkaline Phosphatase 148 U/L (40-110); Anion Gap 27 mmol/L (10-20); BUN (Urea Nitrogen) 35 mg/dL (9.8-20.1); Bilirubin, Total 0.3 mg/dL (0.3-1.2); Calc. Creatinine Clearance 15 mL/min (70-130); Calcium 6.5 mg/dL (7.8-10.44); Carbon Dioxide 15 mmol/L (22-29); Chloride 102 mmol/L (98-107); Estimated GFR 14; Globulin 3.2 g/dL (2.4-3.5); Glucose 280 mg/dL (70-105); Potassium 5.3 mmol/L (3.5-5.1); Protein, Total 5.3 g/dL (6.0-8.3); Sodium 139 mmol/L (136-145)
[2024-09-25 01:32] LABS: ALT (SGPT) 5891 U/L (Less than 34)
[2024-09-25] MEDS: Hydrocortisone Sod Succ/PF 100 mg/2 ml Vial IVP SCH (02:41)
[2024-09-25 04:23] LABS: Lactic Acid 9.53 mmol/L (0.50-2.20)
[2024-09-25 04:44] LABS: CK (CPK) 977 U/L (29-168); Magnesium 1.8 mg/dL (1.6-2.6)
[2024-09-25] MEDS ORDERED: Vancomycin Dose by Levels Sliding Scale (Wt <71) FS SCH (05:00)
[2024-09-25] MEDS: Magnesium 2 GM/50 ML(in water) 2 GM in Premix 1 BAG IVPB SCH (06:06)
[2024-09-25] MEDS: Albumin 5% 12.5 GM (250 mL) BOT IVPB SCH (06:06)
[2024-09-25 06:45] LABS: Hematocrit 33.6 % (36.0-47.0); Hemoglobin 10.3 g/dL (12.0-16.0); Mean Corpuscular HGB CONC 30.7 g/dL (32.0-36.0); Mean Corpuscular Hemoglobin 28.5 pg (27.0-31.0); Mean Corpuscular Volume 92.8 fL (78.0-98.0); Mean Platelet Volume 9.7 fL (7.4-10.4); Platelet Count 85 10x3/uL (130-400); RBC Distribution Width 14.7 % (11.5-14.5); Red Blood Cell (RBC) Count 3.62 mill/uL (4.20-5.40)
[2024-09-25 06:52] LABS: Glucose 212 mg/dL (70-105)
[2024-09-25 06:55] LABS: Phosphorus 8.4 mg/dL (2.5-4.5)
[2024-09-25 06:59] LABS: Lactic Acid 9.59 mmol/L (0.50-2.20)
[2024-09-25 07:17] LABS: Band 27 % (5-11); Eosinophils 1 % (0-10); Hypochromia SLIGHT = 6-15 cells (100X) (0-5/hpf); Lymphocytes 9 % (21-51); Metamyelocyte 7 % (0-0); Monocytes 17 % (0-10); Neutrophil 31 % (42-75); Nucleated RBC (Manual Ct) 1 % (0); Plasma Cells 0 % (0-0); Platelet Adequacy Comment Appears Decreased; Reactive Lymphocytes 8 % (0-10); Total Cell Count 100
[2024-09-25 07:27] LABS: Actual Bicarbonate (HCO3a) 18.8 mEq/L (22-28); Base Excess (BEa) -8.4 mEq/L (-2.0 to +3.0); CO2 Tension 46.1 mmHg (35.0-45.0); Calcium, Ionized (arterial) 0.95 mmol/L (1.12-1.30); Carboxyhemoglobin (COHb) 0.3 gm% (0.0-3.0); Hematocrit-ABG 31 % (36.0-47.0); Hemoglobin (Hb) 10.7 g/dL (12.0-16.0); O2 Tension (PaO2), arterial 89.4 mmHg (80.0-100.0); Potassium - ABG Lab 5.01 mmol/L (3.70-5.30); pH, Arterial 7.229 (7.35-7.45)
[2024-09-25 07:29] LABS: ALV-art Gradient 138.175 mmHg (0-20); Puncture Site Right Brachial art
[2024-09-25] MEDS: Sodium Chloride 0.9% 500 ML IV SCH (08:45)
[2024-09-25] MEDS ORDERED: Enoxaparin 40 MG (0.4 mL) SYRINGE SC SCH (09:00)
[2024-09-25] MEDS: Lactulose 20 GM (30 mL) UDCUP PO SCH ×2 (09:46→14:39)
[2024-09-25] MEDS: levETIRAcetam 500 MG (5 mL) VIAL SLOW IVP SCH (09:47)
[2024-09-25] MEDS: Pantoprazole 40 MG VIAL IVP SCH (09:47)
[2024-09-25] MEDS: Sodium Chloride 0.9% 1,000 ML IV SCH (10:05)
[2024-09-25 10:54] LABS: Actual Bicarbonate (HCO3v) 19.6 mEq/L (22-28); Base Excess -8.3 mEq/L (-2.0 to +3.0); Calcium, Ionized (venous) 0.85 mmol/L (1.16-1.32); Chloride (VBG) 97 mmol/L (98-106); Hematocrit-VBG 32 % (36.0-47.0); Hemoglobin (Hb) 10.9 g/dL (11.7-16.0); Potassium (VBG) 5.22 mmol/L (3.70-5.30); Sodium 138 mmol/L (133-146)
[2024-09-25 11:04] LABS: pH (venous) 7.204 (7.32-7.43)
[2024-09-25] MEDS: Insulin Regular, Human 100 UNIT/ML 10 ML VIAL SC PRN (11:05)
[2024-09-25 11:21] LABS: INR-International Normal Ratio 2.5; Prothrombin Time 26.8 sec (12.0-14.7)
[2024-09-25 11:22] LABS: Hemoglobin 9.9 g/dL (12.0-16.0); Mean Corpuscular HGB CONC 30.9 g/dL (32.0-36.0); Mean Corpuscular Hemoglobin 28.4 pg (27.0-31.0); Mean Corpuscular Volume 91.7 fL (78.0-98.0); Mean Platelet Volume 10.4 fL (7.4-10.4); Platelet Count 67 10x3/uL (130-400); RBC Distribution Width 14.7 % (11.5-14.5); Red Blood Cell (RBC) Count 3.49 mill/uL (4.20-5.40)
[2024-09-25 11:37] LABS: Albumin 2.4 g/dL (3.1-4.5); Alkaline Phosphatase 140 U/L (40-110); Anion Gap 25 mmol/L (10-20); BUN (Urea Nitrogen) 43 mg/dL (9.8-20.1); Bilirubin, Total 0.8 mg/dL (0.3-1.2); Calc. Creatinine Clearance 15 mL/min (70-130); Calcium 6.5 mg/dL (7.8-10.44); Carbon Dioxide 20 mmol/L (22-29); Chloride 99 mmol/L (98-107); Estimated GFR 13; Globulin 2.8 g/dL (2.4-3.5); Glucose 202 mg/dL (70-105); Lactic Acid 10.09 mmol/L (0.50-2.20); Potassium 5.3 mmol/L (3.5-5.1); Protein, Total 5.2 g/dL (6.0-8.3); Sodium 139 mmol/L (136-145)
[2024-09-25 11:43] LABS: ALT (SGPT) 5784 U/L (Less than 34)
[2024-09-25] MEDS: Albumin 25% 25 GM (100 mL) BOT IVPB SCH ×2 (12:13→19:25)
[2024-09-25 12:39] LABS: Band 37 % (5-11); Hypochromia SLIGHT = 6-15 cells HPF (0-5); Large Platelets 0.9 % (0-5); Lymphocytes 6 % (21-51); Metamyelocyte 16 % (0-0); Monocytes 2 % (0-10); Myelocyte 17 % (0-0); Neutrophil 21 % (42-75); Nucleated RBC (Manual Ct) 2 % (0); Platelet Adequacy Comment Platelets Decreased; Polychromasia SLIGHT = 2-3 cells HPF (0-2); Promyelocytes 1 % (0-0); Reflex for Review?? YES; Smudge Cells 1.7 %
[2024-09-25 17:17] LABS: Anion Gap 27 mmol/L (10-20); BUN (Urea Nitrogen) 46 mg/dL (9.8-20.1); Calc. Creatinine Clearance 15 mL/min (70-130); Calcium 6.3 mg/dL (7.8-10.44); Carbon Dioxide 18 mmol/L (22-29); Chloride 100 mmol/L (98-107); Estimated GFR 12; Glucose 148 mg/dL (70-105); Potassium 5.7 mmol/L (3.5-5.1); Sodium 139 mmol/L (136-145)
[2024-09-25] MEDS: Cefepime 1 GM in Sodium Chloride 0.9% 100 ML IVPB SCH (17:54)
[2024-09-25] MEDS: Sodium Chloride 0.9% 100 ML ONE (18:00)
[2024-09-25] MEDS: Sodium Bicarbonate 150 MEQ in Dextrose 5% in Water 1,000 ML IV SCH (19:23)
[2024-09-25] MEDS: CALCIUM GLUC 1 GM/NS 50 ML 1 GM in Premix 1 BAG IVPB SCH (20:09)
[2024-09-25 20:22] LABS: Vancomycin, Random 19.6 ug/mL (See Comment)
[2024-09-25 20:35] LABS: ALT (SGPT) 4578 U/L (Less than 34)
[2024-09-25 20:39] LABS: AST (SGOT) Greater than 4001 U/L (11-34); Albumin 3.2 g/dL (3.1-4.5); Alkaline Phosphatase 120 U/L (40-110); Anion Gap 26 mmol/L (10-20); BUN (Urea Nitrogen) 50 mg/dL (9.8-20.1); Bilirubin, Total 1.5 mg/dL (0.3-1.2); Calc. Creatinine Clearance 14 mL/min (70-130); Calcium 6.3 mg/dL (7.8-10.44); Carbon Dioxide 19 mmol/L (22-29); Chloride 100 mmol/L (98-107); Estimated GFR 11; Globulin 2.6 g/dL (2.4-3.5); Glucose 138 mg/dL (70-105); Lactic Acid 9.11 mmol/L (0.50-2.20); Magnesium 2.3 mg/dL (1.6-2.6); Protein, Total 5.8 g/dL (6.0-8.3); Sodium 139 mmol/L (136-145)
[2024-09-25] MEDS: Rifaximin 550 MG TAB PER TUBE SCH (21:25)
[2024-09-25] MEDS: Dextrose 50% Abboject 50 ML SYRINGE SLOW IVP SCH (21:25)
[2024-09-25] MEDS: Vancomycin HCl 250 MG in Sodium Chloride 0.9% 100 ML IV SCH (22:42)
[2024-09-26 01:05] LABS: Anion Gap 25 mmol/L (10-20); BUN (Urea Nitrogen) 53 mg/dL (9.8-20.1); Calc. Creatinine Clearance 14 mL/min (70-130); Calcium 6.3 mg/dL (7.8-10.44); Carbon Dioxide 20 mmol/L (22-29); Chloride 99 mmol/L (98-107); Estimated GFR 12; Glucose 150 mg/dL (70-105); Sodium 139 mmol/L (136-145)
[2024-09-26] MEDS: Calcium Chloride 13.6 MEQ in Sodium Chloride 0.9% 100 ML IVPB SCH ×2 (01:32→07:35)
[2024-09-26 04:12] LABS: Hemoglobin 7.7 g/dL (12.0-16.0); Mean Corpuscular HGB CONC 32.1 g/dL (32.0-36.0); Mean Corpuscular Hemoglobin 28.1 pg (27.0-31.0); Mean Corpuscular Volume 87.6 fL (78.0-98.0); Mean Platelet Volume 10.7 fL (7.4-10.4); Platelet Count 21 10x3/uL (130-400); RBC Distribution Width 15.1 % (11.5-14.5); Red Blood Cell (RBC) Count 2.74 mill/uL (4.20-5.40)
[2024-09-26 04:21] LABS: INR-International Normal Ratio 3.1; Prothrombin Time 31.7 sec (12.0-14.7)
[2024-09-26 04:47] LABS: Lactic Acid 6.77 mmol/L (0.50-2.20)
[2024-09-26 05:24] LABS: Band 53 % (5-11); Large Platelets 0.8 % (0-5); Lymphocytes 5 % (21-51); Metamyelocyte 21 % (0-0); Monocytes 2 % (0-10); Myelocyte 1 % (0-0); Neutrophil 20 % (42-75); Nucleated RBC (Manual Ct) 1 % (0); Platelet Adequacy Comment Platelets Decreased; RBC Morphology Within Normal Limits; Smudge Cells 0.8 %
[2024-09-26 05:36] LABS: ALT (SGPT) 3734 U/L (Less than 34); Anion Gap 26 mmol/L (10-20); Chloride 98 mmol/L (98-107); Potassium 4.8 mmol/L (3.5-5.1); Sodium 141 mmol/L (136-145)
[2024-09-26 05:45] LABS: AST (SGOT) Greater than 4001 U/L (11-34); Albumin 3.2 g/dL (3.1-4.5); Alkaline Phosphatase 99 U/L (40-110); BUN (Urea Nitrogen) 54 mg/dL (9.8-20.1); Bilirubin, Total 1.7 mg/dL (0.3-1.2); Calc. Creatinine Clearance 14 mL/min (70-130); Calcium 7.1 mg/dL (7.8-10.44); Carbon Dioxide 23 mmol/L (22-29); Estimated GFR 11; Globulin 2.3 g/dL (2.4-3.5); Glucose 99 mg/dL (70-105); Protein, Total 5.5 g/dL (6.0-8.3)
[2024-09-26 08:03] LABS: Hematocrit 21.7 % (36.0-47.0); Mean Corpuscular HGB CONC 32.3 g/dL (32.0-36.0); Mean Corpuscular Hemoglobin 28.5 pg (27.0-31.0); Mean Corpuscular Volume 88.2 fL (78.0-98.0); Mean Platelet Volume 9.2 fL (7.4-10.4); Platelet Count 16 10x3/uL (130-400); RBC Distribution Width 15.2 % (11.5-14.5); Red Blood Cell (RBC) Count 2.46 mill/uL (4.20-5.40)
[2024-09-26 08:44] LABS: Band 18 % (5-11); Dohle Bodies SLIGHT; Hypochromia SLIGHT = 6-15 cells HPF (0-5); Large Platelets 0.8 % (0-5); Lymphocytes 9 % (21-51); Metamyelocyte 13 % (0-0); Monocytes 21 % (0-10); Myelocyte 3 % (0-0); Neutrophil 35 % (42-75); Platelet Adequacy Comment Significant Decrease; Promyelocytes 2 % (0-0); Toxic Granulation SLIGHT; Vacuoles SLIGHT
[2024-09-26] MEDS: Meropenem 500 MG in Sodium Chloride 0.9% 100 ML IVPB SCH ×3 (08:51→21:03)
[2024-09-26 10:14] LABS: Hematocrit 21.2 % (36.0-47.0); Hemoglobin 6.9 g/dL (12.0-16.0)
[2024-09-26] MEDS ORDERED: Vancomycin Hemodialysis Sliding Scale FS SCH (13:30)
[2024-09-26 18:07] LABS: Hemoglobin 8.5 g/dL (12.0-16.0)
[2024-09-26] MEDS: Sodium Bicarbonate 150 MEQ in Dextrose 5 %-0.45 % NaCl 1,000 ML IV SCH (20:51)
[2024-09-26] MEDS: Vancomycin (BATCH) 1.5 GM in Premix 1 BAG IVPB SCH (20:51)
[2024-09-26] MEDS: Sodium Bicarb 50 MEQ/50 ML Abboject 8.4% SYRINGE IVP SCH (20:52)
[2024-09-26] MEDS: Lactated Ringer's 500 ML IV SCH (20:53)
[2024-09-26] MEDS: Lactated Ringer's 1,000 ML IV SCH ×2 (20:53→20:54)
[2024-09-26] MEDS: Calcium Gluconate 4.6 MEQ in Sodium Chloride 0.9% 100 ML IVPB ONE (20:53)
[2024-09-26] MEDS: Vancomycin 1 GM in Sodium Chloride 0.9% 250 ML 300 ML IVPB SCH (20:55)
[2024-09-26] MEDS ORDERED: Vancomycin 1 GM in Premix 1 BAG IVPB SCH (21:00)
[2024-09-27 03:27] LABS: Lactic Acid 4.92 mmol/L (0.50-2.20)
[2024-09-27 03:35] LABS: Hematocrit 23.4 % (36.0-47.0); Mean Corpuscular HGB CONC 34.2 g/dL (32.0-36.0); Mean Corpuscular Volume 84.8 fL (78.0-98.0); Mean Platelet Volume 12.2 fL (7.4-10.4); Platelet Count 15 10x3/uL (130-400); RBC Distribution Width 14.9 % (11.5-14.5); Red Blood Cell (RBC) Count 2.76 mill/uL (4.20-5.40)
[2024-09-27 04:10] LABS: Albumin 3.4 g/dL (3.1-4.5); Chloride 90 mmol/L (98-107); Potassium 4.6 mmol/L (3.5-5.1); Sodium 139 mmol/L (136-145)
[2024-09-27 04:11] LABS: ALT (SGPT) 2174 U/L (Less than 34); AST (SGOT) 2495 U/L (11-34); Alkaline Phosphatase 102 U/L (40-110); Anion Gap 25 mmol/L (10-20); BUN (Urea Nitrogen) 68 mg/dL (9.8-20.1); Bilirubin, Total 3.4 mg/dL (0.3-1.2); Calc. Creatinine Clearance 13 mL/min (70-130); Calcium 6.2 mg/dL (7.8-10.44); Carbon Dioxide 28 mmol/L (22-29); Estimated GFR 10; Globulin 1.9 g/dL (2.4-3.5); Glucose 104 mg/dL (70-105); Protein, Total 5.3 g/dL (6.0-8.3)
[2024-09-27 04:31] LABS: Anisocytosis SLIGHT = 6-15 cells HPF (0-5); Band 42 % (5-11); Hypochromia SLIGHT = 6-15 cells HPF (0-5); Lymphocytes 1 % (21-51); Metamyelocyte 5 % (0-0); Microcytosis SLIGHT = 6-15 cells HPF (0-5); Monocytes 5 % (0-10); Neutrophil 48 % (42-75); Nucleated RBC (Manual Ct) 3 % (0); Platelet Adequacy Comment Significant Decrease; Polychromasia SLIGHT = 2-3 cells HPF (0-2); Smudge Cells 2.9 %
[2024-09-27] MEDS: CALCIUM GLUC 1 GM/NS 50 ML 1 GM in Premix 1 BAG IVPB SCH (05:07)
[2024-09-27] MEDS: Calcium Gluconate 4.6 MEQ in Sodium Chloride 0.9% 100 ML IVPB ONE (05:11)
[2024-09-27 08:08] LABS: Vancomycin, Trough 19.1 ug/mL
[2024-09-27] MEDS: levETIRAcetam 500 MG (5 mL) VIAL SLOW IVP SCH (08:51)
[2024-09-27 09:25] LABS: Platelet Count 17 10x3/uL (130-400)
[2024-09-27] MEDS: FLU (Fluarix Triv) TS24-25(6MOS UP)/PF 45 MCG/0.5 ML Syringe IM ONE (09:25)
[2024-09-27 09:29] LABS: INR-International Normal Ratio 2.1; Prothrombin Time 23.3 sec (12.0-14.7)
[2024-09-27 09:30] LABS: Fibrinogen 268 mg/dL (253-463); PTT 31.5 sec (22.9-36.1)
[2024-09-27 09:40] LABS: D-Dimer Test 14.64 mcg/mL (0.27-0.43)
[2024-09-27] MEDS ORDERED: Heparin 10,000 UNITS/ 10 ML VIAL ONE (10:43)
[2024-09-27 10:44] LABS: HBSAB Concentration Less than 8.00 mIU/mL; HBsAg Index 0.82 S/CO (0-0.99); Hep B Core Total Ab NONREACTIVE (NonReactive); Hep B Core Total Index 0.13 S/CO (0-0.79); Hep B Surf AB NONREACTIVE (NonReactive); Hep B Surf Ag NONREACTIVE S/CO (NonReactive); Hep C IgG Ab NONREACTIVE S/CO (NonReactive); Hep C Index 0.13 S/CO (0-0.79)
[2024-09-27] MEDS: Baclofen 10 MG TAB PER TUBE SCH (13:45)
[2024-09-27] MEDS: ACETYLCYSTEINE IVPB SCH (13:46)
[2024-09-27] MEDS: DEXTROSE 5% IVPB SCH (13:46)
[2024-09-27] MEDS: WATER IVPB SCH (13:46)
[2024-09-27 14:28] LABS: Hematocrit 22.7 % (36.0-47.0); Hemoglobin 7.8 g/dL (12.0-16.0); Platelet Count 50 10x3/uL (130-400)
[2024-09-27] MEDS: Lorazepam 2 MG/ML VIAL SLOW IVP PRN (14:43)
[2024-09-27] MEDS: Acetylcysteine 20% (200mg/mL) 3,500 MG in Dextrose 5% in Water 500 ML IV SCH (15:00)
[2024-09-27] MEDS: Meropenem 500 MG in Sodium Chloride 0.9% 100 ML IVPB SCH (16:28)
[2024-09-27] MEDS: Vancomycin HCl 500 MG in Sodium Chloride 0.9% 100 ML IVPB SCH (16:29)
[2024-09-27] MEDS: DEXTROSE 5% IV SCH (21:19)
[2024-09-27] MEDS: WATER IV SCH (21:19)
[2024-09-27] MEDS: ACETYLCYSTEINE IV SCH (21:19)
[2024-09-28 04:11] LABS: Hematocrit 24.9 % (36.0-47.0); Hemoglobin 8.5 g/dL (12.0-16.0); Mean Corpuscular HGB CONC 34.1 g/dL (32.0-36.0); Mean Corpuscular Hemoglobin 28.8 pg (27.0-31.0); Mean Corpuscular Volume 84.4 fL (78.0-98.0); Mean Platelet Volume 10.6 fL (7.4-10.4); Platelet Count 52 10x3/uL (130-400); RBC Distribution Width 15.2 % (11.5-14.5); Red Blood Cell (RBC) Count 2.95 mill/uL (4.20-5.40)
[2024-09-28 04:17] LABS: INR-International Normal Ratio 1.9; PTT 28.3 sec (22.9-36.1); Prothrombin Time 21.4 sec (12.0-14.7)
[2024-09-28 04:40] LABS: Band 8 % (5-11); Hypochromia SLIGHT = 6-15 cells HPF (0-5); Lymphocytes 7 % (21-51); Monocytes 8 % (0-10); Myelocyte 2 % (0-0); Neutrophil 76 % (42-75); Platelet Adequacy Comment Platelets Decreased; Smudge Cells 4.8 %
[2024-09-28 05:10] LABS: Albumin 2.4 g/dL (3.1-4.5); Chloride 87 mmol/L (98-107); Potassium 3.7 mmol/L (3.5-5.1); Sodium 136 mmol/L (136-145)
[2024-09-28 06:09] LABS: ALT (SGPT) 1274 U/L (Less than 34); AST (SGOT) 739 U/L (11-34); Alkaline Phosphatase 150 U/L (40-110); Anion Gap 21 mmol/L (10-20); BUN (Urea Nitrogen) 57 mg/dL (9.8-20.1); Bilirubin, Total 2.9 mg/dL (0.3-1.2); Calc. Creatinine Clearance 16 mL/min (70-130); Calcium 6.6 mg/dL (7.8-10.44); Carbon Dioxide 32 mmol/L (22-29); Estimated GFR 11; Globulin 2.2 g/dL (2.4-3.5); Glucose 161 mg/dL (70-105); Protein, Total 4.6 g/dL (6.0-8.3)
[2024-09-28 07:51] LABS: Vancomycin, Trough 20.4 ug/mL
[2024-09-28] MEDS: Baclofen 10 MG TAB PER TUBE SCH (09:52)
[2024-09-28] MEDS ORDERED: Albumin 25% 25 GM (100 mL) BOT IVPB PRN (10:08)
[2024-09-28] MEDS ORDERED: Heparin 10,000 UNITS/ 10 ML VIAL ONE (10:26)
[2024-09-28] MEDS ORDERED: Vancomycin Diaylsis Sliding Scale (Wt 71-99) FS SCH (10:30)
[2024-09-28] MEDS: CALCIUM GLUC 1 GM/NS 50 ML 1 GM in Premix 1 BAG IVPB SCH (15:18)
[2024-09-28] MEDS: Vancomycin 250 MG in Sodium Chloride 0.9% 100 ML IVPB SCH (17:44)
[2024-09-29 06:10] LABS: Hematocrit 28.1 % (36.0-47.0); Hemoglobin 9.6 g/dL (12.0-16.0); Mean Corpuscular HGB CONC 34.2 g/dL (32.0-36.0); Mean Corpuscular Hemoglobin 29.5 pg (27.0-31.0); Mean Corpuscular Volume 86.5 fL (78.0-98.0); Mean Platelet Volume 11.6 fL (7.4-10.4); Platelet Count 59 10x3/uL (130-400); RBC Distribution Width 15.5 % (11.5-14.5); Red Blood Cell (RBC) Count 3.25 mill/uL (4.20-5.40)
[2024-09-29 07:40] LABS: Anisocytosis SLIGHT = 6-15 cells HPF (0-5); Band 16 % (5-11); Elliptocytes SLIGHT = 2-5 cells HPF (0-1); Lymphocytes 8 % (21-51); Macrocytosis SLIGHT = 6-15 cells HPF (0-5); Metamyelocyte 1 % (0-0); Monocytes 13 % (0-10); Myelocyte 2 % (0-0); Neutrophil 60 % (42-75); Platelet Adequacy Comment Platelets Decreased; Polychromasia SLIGHT = 2-3 cells HPF (0-2); Reactive Lymphocytes 1 % (0-10); Smudge Cells 6.8 %
[2024-09-29 08:19] LABS: ALT (SGPT) 817 U/L (Less than 34); AST (SGOT) 244 U/L (11-34); Albumin 2.3 g/dL (3.1-4.5); Alkaline Phosphatase 240 U/L (40-110); Anion Gap 21 mmol/L (10-20); BUN (Urea Nitrogen) 58 mg/dL (9.8-20.1); Bilirubin, Total 2.2 mg/dL (0.3-1.2); Calc. Creatinine Clearance 18 mL/min (70-130); Calcium 7.9 mg/dL (7.8-10.44); Carbon Dioxide 25 mmol/L (22-29); Chloride 94 mmol/L (98-107); Estimated GFR 12; Globulin 2.5 g/dL (2.4-3.5); Glucose 117 mg/dL (70-105); Potassium 4.1 mmol/L (3.5-5.1); Protein, Total 4.8 g/dL (6.0-8.3); Sodium 136 mmol/L (136-145)
[2024-09-29] MEDS: Albumin 25% 25 GM (100 mL) BOT IVPB PRN (14:10)
[2024-09-29] MEDS: Vancomycin HCl 750 MG in Sodium Chloride 0.9% 250 ML 250 ML IVPB SCH (17:18)
[2024-09-30 04:40] LABS: #Basophils 0.07 10x3/uL (0.0-0.2); #Eosinophils Less than 0.03 10x3/uL (0.0-0.7); %Basophils 0.5 % (0.0-1.0); %Lymphocytes 10.4 % (21.0-51.0); %Monocytes 8.8 % (0.0-10.0); %Neutrophils 66.3 % (42.0-75.0); Hematocrit 26.9 % (36.0-47.0); Hemoglobin 8.8 g/dL (12.0-16.0); Mean Corpuscular HGB CONC 32.7 g/dL (32.0-36.0); Mean Corpuscular Hemoglobin 28.7 pg (27.0-31.0); Mean Corpuscular Volume 87.6 fL (78.0-98.0); Mean Platelet Volume 10.5 fL (7.4-10.4); Platelet Count 57 10x3/uL (130-400); RBC Distribution Width 15.7 % (11.5-14.5); Red Blood Cell (RBC) Count 3.07 mill/uL (4.20-5.40)
[2024-09-30 04:42] LABS: ALT (SGPT) 562 U/L (Less than 34); AST (SGOT) 153 U/L (11-34); Albumin 2.9 g/dL (3.1-4.5); Alkaline Phosphatase 228 U/L (40-110); Anion Gap 16 mmol/L (10-20); BUN (Urea Nitrogen) 35 mg/dL (9.8-20.1); Bilirubin, Total 1.9 mg/dL (0.3-1.2); Calc. Creatinine Clearance 0 mL/min (70-130); Calcium 8.2 mg/dL (7.8-10.44); Carbon Dioxide 29 mmol/L (22-29); Chloride 100 mmol/L (98-107); Estimated GFR 20; Globulin 2.3 g/dL (2.4-3.5); Glucose 121 mg/dL (70-105); Potassium 4.2 mmol/L (3.5-5.1); Protein, Total 5.2 g/dL (6.0-8.3); Sodium 141 mmol/L (136-145)
[2024-09-30 05:35] LABS: Vancomycin, Trough 26.4 ug/mL
[2024-09-30] MEDS ORDERED: Heparin 10,000 UNITS/ 10 ML VIAL ONE (08:38)
[2024-09-30] MEDS: Fentanyl CADD 100 ML IV SCH (08:53)
[2024-09-30] MEDS: Albumin 25% 25 GM (100 mL) BOT IVPB PRN (08:58)
[2024-09-30] MEDS: Pancrelipase DR 12,000 1 CAP FS PRN (21:10)
[2024-09-30] MEDS: Sodium Bicarbonate Tab 325 MG TAB PER TUBE PRN (21:10)
[2024-10-01 05:01] LABS: ALT (SGPT) 420 U/L (Less than 34); AST (SGOT) 104 U/L (11-34); Albumin 3.1 g/dL (3.1-4.5); Alkaline Phosphatase 227 U/L (40-110); Anion Gap 18 mmol/L (10-20); BUN (Urea Nitrogen) 33 mg/dL (9.8-20.1); Bilirubin, Total 1.7 mg/dL (0.3-1.2); Calc. Creatinine Clearance 0 mL/min (70-130); Calcium 8.5 mg/dL (7.8-10.44); Carbon Dioxide 26 mmol/L (22-29); Chloride 104 mmol/L (98-107); Estimated GFR 20; Globulin 2.5 g/dL (2.4-3.5); Glucose 141 mg/dL (70-105); Potassium 3.7 mmol/L (3.5-5.1); Protein, Total 5.6 g/dL (6.0-8.3); Sodium 144 mmol/L (136-145)
[2024-10-01 05:23] LABS: Hematocrit 27.6 % (36.0-47.0); Hemoglobin 8.8 g/dL (12.0-16.0); Mean Corpuscular HGB CONC 31.9 g/dL (32.0-36.0); Mean Corpuscular Hemoglobin 28.3 pg (27.0-31.0); Mean Corpuscular Volume 88.7 fL (78.0-98.0); Mean Platelet Volume 11.4 fL (7.4-10.4); Platelet Count 84 10x3/uL (130-400); RBC Distribution Width 15.9 % (11.5-14.5); Red Blood Cell (RBC) Count 3.11 mill/uL (4.20-5.40)
[2024-10-01 07:27] LABS: Band 7 % (5-11); Hypochromia SLIGHT = 6-15 cells HPF (0-5); Lymphocytes 10 % (21-51); Monocytes 9 % (0-10); Neutrophil 67 % (42-75); Platelet Adequacy Comment Platelets Decreased; Polychromasia SLIGHT = 2-3 cells HPF (0-2); Promyelocytes 7 % (0-0); Smudge Cells 2.9 %
[2024-10-02 04:37] LABS: Hematocrit 27.7 % (36.0-47.0); Hemoglobin 8.8 g/dL (12.0-16.0); Mean Corpuscular HGB CONC 31.8 g/dL (32.0-36.0); Mean Corpuscular Hemoglobin 28.6 pg (27.0-31.0); Mean Corpuscular Volume 89.9 fL (78.0-98.0); Mean Platelet Volume 11.2 fL (7.4-10.4); Platelet Count 117 10x3/uL (130-400); RBC Distribution Width 15.9 % (11.5-14.5); Red Blood Cell (RBC) Count 3.08 mill/uL (4.20-5.40)
[2024-10-02 05:19] LABS: Band 6 % (5-11); Lymphocytes 8 % (21-51); Metamyelocyte 4 % (0-0); Monocytes 6 % (0-10); Myelocyte 2 % (0-0); Neutrophil 74 % (42-75); Platelet Adequacy Comment Platelets Decreased; RBC Morphology Within Normal Limits; Reactive Lymphocytes 1 % (0-10); Smudge Cells 11.8 %
[2024-10-02 06:23] LABS: ALT (SGPT) 309 U/L (Less than 34); AST (SGOT) 69 U/L (11-34); Albumin 2.9 g/dL (3.1-4.5); Alkaline Phosphatase 195 U/L (40-110); Anion Gap 22 mmol/L (10-20); BUN (Urea Nitrogen) 64 mg/dL (9.8-20.1); Bilirubin, Total 1.6 mg/dL (0.3-1.2); Calc. Creatinine Clearance 16 mL/min (70-130); Calcium 8.1 mg/dL (7.8-10.44); Carbon Dioxide 22 mmol/L (22-29); Chloride 105 mmol/L (98-107); Estimated GFR 11; Globulin 2.7 g/dL (2.4-3.5); Glucose 118 mg/dL (70-105); Potassium 4.1 mmol/L (3.5-5.1); Protein, Total 5.6 g/dL (6.0-8.3); Sodium 145 mmol/L (136-145)
[2024-10-02 08:54] LABS: Vancomycin, Trough 16.5 ug/mL
[2024-10-02] MEDS ORDERED: Heparin 10,000 UNITS/ 10 ML VIAL ONE (09:28)
[2024-10-02] MEDS: Hydrocortisone Sod Succ/PF 100 mg/2 ml Vial IVP SCH (12:00)
[2024-10-02] MEDS ORDERED: Artificial Tear Ophth Sol 15 ML BOT EA EYE PRN (15:18)
[2024-10-02] MEDS: DC Sedation Protocol FS ONE (15:30)
[2024-10-02 15:47] LABS: PTT 26.7 sec (22.9-36.1)
[2024-10-02 15:48] LABS: INR-International Normal Ratio 1.4; Prothrombin Time 16.7 sec (12.0-14.7)
[2024-10-02] MEDS ORDERED: Vancomycin HCl 750 MG in Sodium Chloride 0.9% 250 ML 250 ML IVPB SCH (17:00)
[2024-10-02] MEDS: oxyCODONE 5 MG TAB PO PRN (21:43)
[2024-10-03 05:50] LABS: ALT (SGPT) 249 U/L (Less than 34); AST (SGOT) 77 U/L (11-34); Albumin 2.7 g/dL (3.1-4.5); Alkaline Phosphatase 199 U/L (40-110); Anion Gap 17 mmol/L (10-20); BUN (Urea Nitrogen) 52 mg/dL (9.8-20.1); Bilirubin, Total 1.2 mg/dL (0.3-1.2); Calc. Creatinine Clearance 22 mL/min (70-130); Calcium 7.8 mg/dL (7.8-10.44); Carbon Dioxide 22 mmol/L (22-29); Chloride 101 mmol/L (98-107); Estimated GFR 16; Globulin 2.9 g/dL (2.4-3.5); Glucose 202 mg/dL (70-105); Potassium 3.9 mmol/L (3.5-5.1); Protein, Total 5.6 g/dL (6.0-8.3); Sodium 136 mmol/L (136-145)
[2024-10-03 06:22] LABS: Hematocrit 28.6 % (36.0-47.0); Hemoglobin 9.5 g/dL (12.0-16.0); Mean Corpuscular HGB CONC 33.2 g/dL (32.0-36.0); Mean Corpuscular Hemoglobin 29.3 pg (27.0-31.0); Mean Corpuscular Volume 88.3 fL (78.0-98.0); Platelet Count 153 10x3/uL (130-400); RBC Distribution Width 15.8 % (11.5-14.5); Red Blood Cell (RBC) Count 3.24 mill/uL (4.20-5.40)
[2024-10-03 06:38] LABS: Band 4 % (5-11); Hypochromia SLIGHT = 6-15 cells HPF (0-5); Lymphocytes 7 % (21-51); Metamyelocyte 3 % (0-0); Monocytes 4 % (0-10); Myelocyte 1 % (0-0); Neutrophil 79 % (42-75); Nucleated RBC (Manual Ct) 1 % (0); Platelet Adequacy Comment Platelets Normal; Polychromasia SLIGHT = 2-3 cells HPF (0-2); Promyelocytes 1 % (0-0); Reactive Lymphocytes 1 % (0-10)
[2024-10-03] MEDS: Baclofen 10 MG TAB PO SCH (08:45)
[2024-10-03] MEDS: levETIRAcetam 500 MG TAB PO SCH (22:01)
[2024-10-04 05:07] LABS: #Basophils 0.03 10x3/uL (0.0-0.2); #Eosinophils Less than 0.03 10x3/uL (0.0-0.7); %Basophils 0.2 % (0.0-1.0); %Lymphocytes 5.4 % (21.0-51.0); %Monocytes 4.5 % (0.0-10.0); %Neutrophils 85.7 % (42.0-75.0); Hematocrit 29.6 % (36.0-47.0); Hemoglobin 9.8 g/dL (12.0-16.0); Mean Corpuscular HGB CONC 33.1 g/dL (32.0-36.0); Mean Corpuscular Hemoglobin 28.9 pg (27.0-31.0); Mean Corpuscular Volume 87.3 fL (78.0-98.0); Mean Platelet Volume 10.3 fL (7.4-10.4); Platelet Count 177 10x3/uL (130-400); RBC Distribution Width 15.9 % (11.5-14.5); Red Blood Cell (RBC) Count 3.39 mill/uL (4.20-5.40)
[2024-10-04 07:03] LABS: ALT (SGPT) 197 U/L (Less than 34); AST (SGOT) 65 U/L (11-34); Albumin 2.5 g/dL (3.1-4.5); Alkaline Phosphatase 169 U/L (40-110); Anion Gap 17 mmol/L (10-20); BUN (Urea Nitrogen) 63 mg/dL (9.8-20.1); Calc. Creatinine Clearance 15 mL/min (70-130); Calcium 7.8 mg/dL (7.8-10.44); Carbon Dioxide 23 mmol/L (22-29); Chloride 101 mmol/L (98-107); Estimated GFR 11; Glucose 121 mg/dL (70-105); Protein, Total 5.5 g/dL (6.0-8.3); Sodium 137 mmol/L (136-145)
[2024-10-04 08:31] LABS: Phosphorus 7.5 mg/dL (2.5-4.5)
[2024-10-04 08:33] LABS: Iron 69 ug/dL (50-170); Iron Binding Capacity, Total 215 mcg/dL (265-497); Magnesium 2.1 mg/dL (1.6-2.6)
[2024-10-04] MEDS ORDERED: Heparin 10,000 UNITS/ 10 ML VIAL ONE (10:21)
[2024-10-04] MEDS: Heparin 5,000 UNITS/ML VIAL SC SCH (14:25)
[2024-10-04] MEDS: Lactulose 20 GM (30 mL) UDCUP PO SCH (21:06)
[2024-10-05 06:43] LABS: ALT (SGPT) 145 U/L (Less than 34); AST (SGOT) 64 U/L (11-34); Albumin 2.5 g/dL (3.1-4.5); Alkaline Phosphatase 170 U/L (40-110); Anion Gap 16 mmol/L (10-20); BUN (Urea Nitrogen) 44 mg/dL (9.8-20.1); Bilirubin, Direct 0.6 mg/dL (0.1-0.3); Bilirubin, Total 1.2 mg/dL (0.3-1.2); Calc. Creatinine Clearance 16 mL/min (70-130); Calcium 7.8 mg/dL (7.8-10.44); Carbon Dioxide 24 mmol/L (22-29); Chloride 101 mmol/L (98-107); Estimated GFR 12; Glucose 66 mg/dL (70-105); Potassium 4.1 mmol/L (3.5-5.1); Protein, Total 5.4 g/dL (6.0-8.3); Sodium 137 mmol/L (136-145)
[2024-10-05] MEDS: Ferrous Sulfate 325 MG TAB PO SCH (09:10)
[2024-10-05] MEDS: Pantoprazole 40 MG DR.TAB PO SCH (09:11)
[2024-10-05] MEDS: Rifaximin 550 MG TAB PO SCH (09:11)
[2024-10-05] MEDS: Hydrocortisone Sod Succ/PF 100 mg/2 ml Vial IVP SCH (09:13)
[2024-10-05] MEDS: Epoetin (ESRD) 10,000 UNITS/ML VIAL SC SCH (11:25)
[2024-10-05] MEDS: EPOETIN ALFA-EPBX (ESRD) 10,000 UNITS/ML VIAL SC SCH (12:39)
[2024-10-05 15:27] LABS: #Basophils Less than 0.03 10x3/uL (0.0-0.2); #Eosinophils Less than 0.03 10x3/uL (0.0-0.7); %Basophils 0.1 % (0.0-1.0); %Lymphocytes 4.8 % (21.0-51.0); %Monocytes 1.4 % (0.0-10.0); %Neutrophils 92.4 % (42.0-75.0); Hematocrit 27.6 % (36.0-47.0); Mean Corpuscular HGB CONC 32.6 g/dL (32.0-36.0); Mean Corpuscular Hemoglobin 29.1 pg (27.0-31.0); Mean Corpuscular Volume 89.3 fL (78.0-98.0); Mean Platelet Volume 10.2 fL (7.4-10.4); Platelet Count 190 10x3/uL (130-400); RBC Distribution Width 16.2 % (11.5-14.5); Red Blood Cell (RBC) Count 3.09 mill/uL (4.20-5.40)
[2024-10-05 15:40] LABS: Lactic Acid 1.89 mmol/L (0.50-2.20)
[2024-10-05 20:09] LABS: Base Excess -4.5 mEq/L (-2.0 to +3.0); Calcium, Ionized (venous) 1.06 mmol/L (1.16-1.32); Chloride (VBG) 100 mmol/L (98-106); Hematocrit-VBG 30 % (36.0-47.0); Hemoglobin (Hb) 10.1 g/dL (11.7-16.0); Potassium (VBG) 4.73 mmol/L (3.70-5.30); Sodium 136 mmol/L (133-146); pH (venous) 7.377 (7.32-7.43)
[2024-10-06 05:13] LABS: #Basophils Less than 0.03 10x3/uL (0.0-0.2); #Eosinophils Less than 0.03 10x3/uL (0.0-0.7); %Basophils 0.1 % (0.0-1.0); %Eosinophils 0.2 % (0.0-10.0); %Lymphocytes 16.3 % (21.0-51.0); %Monocytes 4.2 % (0.0-10.0); %Neutrophils 78.1 % (42.0-75.0); Hematocrit 24.7 % (36.0-47.0); Hemoglobin 8.2 g/dL (12.0-16.0); Mean Corpuscular HGB CONC 33.2 g/dL (32.0-36.0); Mean Corpuscular Hemoglobin 29.5 pg (27.0-31.0); Mean Corpuscular Volume 88.8 fL (78.0-98.0); Mean Platelet Volume 9.9 fL (7.4-10.4); Platelet Count 198 10x3/uL (130-400); RBC Distribution Width 16.1 % (11.5-14.5); Red Blood Cell (RBC) Count 2.78 mill/uL (4.20-5.40)
[2024-10-06 05:33] LABS: Anion Gap 21 mmol/L (10-20); BUN (Urea Nitrogen) 65 mg/dL (9.8-20.1); Calc. Creatinine Clearance 13 mL/min (70-130); Calcium 7.8 mg/dL (7.8-10.44); Carbon Dioxide 20 mmol/L (22-29); Chloride 103 mmol/L (98-107); Estimated GFR 9; Glucose 68 mg/dL (70-105); Potassium 4.7 mmol/L (3.5-5.1); Sodium 139 mmol/L (136-145)
[2024-10-07 06:34] LABS: #Basophils Less than 0.03 10x3/uL (0.0-0.2); %Eosinophils 0.2 % (0.0-10.0); %Lymphocytes 14.8 % (21.0-51.0); %Monocytes 4.2 % (0.0-10.0); %Neutrophils 79.6 % (42.0-75.0); Hematocrit 24.3 % (36.0-47.0); Hemoglobin 7.9 g/dL (12.0-16.0); Mean Corpuscular HGB CONC 32.5 g/dL (32.0-36.0); Mean Corpuscular Hemoglobin 29.6 pg (27.0-31.0); Mean Platelet Volume 9.8 fL (7.4-10.4); Platelet Count 185 10x3/uL (130-400); RBC Distribution Width 16.8 % (11.5-14.5); Red Blood Cell (RBC) Count 2.67 mill/uL (4.20-5.40)
[2024-10-07 06:49] LABS: Anion Gap 23 mmol/L (10-20); BUN (Urea Nitrogen) 74 mg/dL (9.8-20.1); Calc. Creatinine Clearance 10 mL/min (70-130); Calcium 7.8 mg/dL (7.8-10.44); Carbon Dioxide 18 mmol/L (22-29); Chloride 102 mmol/L (98-107); Estimated GFR 7; Glucose 85 mg/dL (70-105); Potassium 5.1 mmol/L (3.5-5.1); Sodium 138 mmol/L (136-145)
[2024-10-07] MEDS ORDERED: Heparin 10,000 UNITS/ 10 ML VIAL ONE (09:53)
[2024-10-07] MEDS: Tuberculin PPD 0.1 ML SYRINGE (10 TEST VIAL) I-DERMAL SCH (13:40)
[2024-10-08 04:47] LABS: #Basophils Less than 0.03 10x3/uL (0.0-0.2); %Basophils 0.1 % (0.0-1.0); %Eosinophils 0.3 % (0.0-10.0); %Lymphocytes 12.2 % (21.0-51.0); %Monocytes 4.8 % (0.0-10.0); %Neutrophils 81.9 % (42.0-75.0); Hemoglobin 7.9 g/dL (12.0-16.0); Mean Corpuscular HGB CONC 32.9 g/dL (32.0-36.0); Mean Corpuscular Hemoglobin 29.7 pg (27.0-31.0); Mean Corpuscular Volume 90.2 fL (78.0-98.0); Mean Platelet Volume 9.7 fL (7.4-10.4); Platelet Count 185 10x3/uL (130-400); RBC Distribution Width 17.2 % (11.5-14.5); Red Blood Cell (RBC) Count 2.66 mill/uL (4.20-5.40)
[2024-10-08 05:08] LABS: ALT (SGPT) 66 U/L (Less than 34); AST (SGOT) 44 U/L (11-34); Albumin 2.4 g/dL (3.1-4.5); Alkaline Phosphatase 137 U/L (40-110); Anion Gap 16 mmol/L (10-20); BUN (Urea Nitrogen) 47 mg/dL (9.8-20.1); Bilirubin, Direct 0.6 mg/dL (0.1-0.3); Calc. Creatinine Clearance 15 mL/min (70-130); Carbon Dioxide 23 mmol/L (22-29); Chloride 103 mmol/L (98-107); Estimated GFR 11; Glucose 75 mg/dL (70-105); Potassium 5.1 mmol/L (3.5-5.1); Protein, Total 5.9 g/dL (6.0-8.3); Sodium 137 mmol/L (136-145)
[2024-10-09 06:48] LABS: #Basophils Less than 0.03 10x3/uL (0.0-0.2); %Basophils 0.1 % (0.0-1.0); %Eosinophils 0.3 % (0.0-10.0); %Lymphocytes 15.1 % (21.0-51.0); %Monocytes 5.4 % (0.0-10.0); %Neutrophils 78.5 % (42.0-75.0); Hemoglobin 7.8 g/dL (12.0-16.0); Mean Corpuscular HGB CONC 32.5 g/dL (32.0-36.0); Mean Corpuscular Hemoglobin 29.4 pg (27.0-31.0); Mean Corpuscular Volume 90.6 fL (78.0-98.0); Mean Platelet Volume 9.9 fL (7.4-10.4); Platelet Count 187 10x3/uL (130-400); RBC Distribution Width 16.9 % (11.5-14.5); Red Blood Cell (RBC) Count 2.65 mill/uL (4.20-5.40)
[2024-10-09 07:15] LABS: Anion Gap 20 mmol/L (10-20); BUN (Urea Nitrogen) 61 mg/dL (9.8-20.1); Calc. Creatinine Clearance 11 mL/min (70-130); Calcium 8.2 mg/dL (7.8-10.44); Carbon Dioxide 21 mmol/L (22-29); Chloride 102 mmol/L (98-107); Estimated GFR 8; Glucose 68 mg/dL (70-105); Sodium 138 mmol/L (136-145)
[2024-10-09] MEDS ORDERED: Heparin 10,000 UNITS/ 10 ML VIAL ONE (11:05)
[2024-10-09] MEDS ORDERED: READ PPD TEST SITE PO SCH (12:00)
[2024-10-09] MEDS: Lactulose 20 GM (30 mL) UDCUP PO SCH (21:08)
[2024-10-10 05:12] LABS: #Basophils Less than 0.03 10x3/uL (0.0-0.2); #Eosinophils Less than 0.03 10x3/uL (0.0-0.7); %Basophils 0.1 % (0.0-1.0); %Eosinophils 0.1 % (0.0-10.0); %Lymphocytes 17.4 % (21.0-51.0); %Monocytes 6.1 % (0.0-10.0); %Neutrophils 75.4 % (42.0-75.0); Hematocrit 22.2 % (36.0-47.0); Hemoglobin 7.4 g/dL (12.0-16.0); Mean Corpuscular HGB CONC 33.3 g/dL (32.0-36.0); Mean Corpuscular Hemoglobin 30.3 pg (27.0-31.0); Mean Platelet Volume 9.8 fL (7.4-10.4); Platelet Count 171 10x3/uL (130-400); RBC Distribution Width 16.8 % (11.5-14.5); Red Blood Cell (RBC) Count 2.44 mill/uL (4.20-5.40)
[2024-10-10 05:52] LABS: Anion Gap 16 mmol/L (10-20); BUN (Urea Nitrogen) 33 mg/dL (9.8-20.1); Calc. Creatinine Clearance 18 mL/min (70-130); Carbon Dioxide 25 mmol/L (22-29); Chloride 103 mmol/L (98-107); Estimated GFR 14; Glucose 72 mg/dL (70-105); Potassium 4.7 mmol/L (3.5-5.1); Sodium 139 mmol/L (136-145)
[2024-10-10] MEDS ORDERED: Lidocaine 2% PF 5 ML VIAL ONE (06:31)
[2024-10-10] MEDS ORDERED: Bupivacaine 0.25% HCL 30 ML VIAL ONE (06:31)
[2024-10-10] MEDS ORDERED: Heparin 10,000 UNITS/ 10 ML VIAL ONE (06:31)
[2024-10-10] MEDS ORDERED: EPINEPHrine 1 MG/ML VIAL ONE (06:31)
[2024-10-10] MEDS ORDERED: Dextrose 5% in Water 1,000 ML IV PRN (06:35)
[2024-10-10] MEDS ORDERED: Glucagon 1 MG/ML KIT IM PRN (06:35)
[2024-10-10] MEDS ORDERED: Dextrose 50% Abboject 50 ML SYRINGE SLOW IVP PRN (06:35)
[2024-10-10] MEDS ORDERED: fentaNYL PF 100 MCG/2 ML SYRINGE ONE (07:15)
[2024-10-10] MEDS ORDERED: PROPOFOL 20 ML ONE (07:15)
[2024-10-10] MEDS ORDERED: Lidocaine 1% PF 5 ML VIAL ONE (07:17)
[2024-10-10] MEDS ORDERED: Sodium Chloride 0.9% 100 ML ONE (07:29)
[2024-10-10] MEDS ORDERED: CEFAZOLIN 1 GM VIAL ONE (07:29)
[2024-10-10] MEDS ORDERED: Dexamethasone 4 mg/ml Vial ONE (07:59)
[2024-10-10] MEDS ORDERED: Ondansetron PF 4 MG/2 ML Vial ONE (07:59)
[2024-10-11] MEDS ORDERED: Heparin 10,000 UNITS/ 10 ML VIAL ONE (11:32)
[2024-10-11 13:20] LABS: #Basophils Less than 0.03 10x3/uL (0.0-0.2); %Basophils 0.1 % (0.0-1.0); %Eosinophils 0.9 % (0.0-10.0); %Monocytes 5.9 % (0.0-10.0); %Neutrophils 67.4 % (42.0-75.0); Hematocrit 23.3 % (36.0-47.0); Hemoglobin 7.6 g/dL (12.0-16.0); Mean Corpuscular HGB CONC 32.6 g/dL (32.0-36.0); Mean Corpuscular Hemoglobin 29.7 pg (27.0-31.0); Platelet Count 150 10x3/uL (130-400); RBC Distribution Width 17.3 % (11.5-14.5); Red Blood Cell (RBC) Count 2.56 mill/uL (4.20-5.40)
[2024-10-11] MEDS: DULoxetine 60 MG CAP PO SCH (13:29)
[2024-10-11 13:45] LABS: ALT (SGPT) 27 U/L (Less than 34); AST (SGOT) 26 U/L (11-34); Albumin 2.2 g/dL (3.1-4.5); Alkaline Phosphatase 105 U/L (40-110); Anion Gap 13 mmol/L (10-20); BUN (Urea Nitrogen) 15 mg/dL (9.8-20.1); Bilirubin, Direct 0.3 mg/dL (0.1-0.3); Bilirubin, Total 0.5 mg/dL (0.3-1.2); Calc. Creatinine Clearance 30 mL/min (70-130); Calcium 7.8 mg/dL (7.8-10.44); Carbon Dioxide 27 mmol/L (22-29); Chloride 104 mmol/L (98-107); Estimated GFR 26; Glucose 69 mg/dL (70-105); Potassium 3.7 mmol/L (3.5-5.1); Protein, Total 5.8 g/dL (6.0-8.3); Sodium 140 mmol/L (136-145)
[2024-10-12 10:51] LABS: #Basophils Less than 0.03 10x3/uL (0.0-0.2); #Eosinophils Less than 0.03 10x3/uL (0.0-0.7); %Basophils 0.2 % (0.0-1.0); %Eosinophils 0.3 % (0.0-10.0); %Lymphocytes 13.6 % (21.0-51.0); %Monocytes 6.9 % (0.0-10.0); %Neutrophils 78.4 % (42.0-75.0); Hematocrit 27.6 % (36.0-47.0); Hemoglobin 8.9 g/dL (12.0-16.0); Mean Corpuscular HGB CONC 32.2 g/dL (32.0-36.0); Mean Corpuscular Hemoglobin 29.9 pg (27.0-31.0); Mean Corpuscular Volume 92.6 fL (78.0-98.0); Mean Platelet Volume 9.8 fL (7.4-10.4); Platelet Count 124 10x3/uL (130-400); RBC Distribution Width 17.3 % (11.5-14.5); Red Blood Cell (RBC) Count 2.98 mill/uL (4.20-5.40)
[2024-10-12 15:43] LABS: ALT (SGPT) 22 U/L (Less than 34); AST (SGOT) 28 U/L (11-34); Albumin 2.5 g/dL (3.1-4.5); Alkaline Phosphatase 112 U/L (40-110); Bilirubin, Direct 0.3 mg/dL (0.1-0.3); Bilirubin, Total 0.6 mg/dL (0.3-1.2); Protein, Total 6.5 g/dL (6.0-8.3)
[2024-10-12 16:07] LABS: Anion Gap 18 mmol/L (10-20); BUN (Urea Nitrogen) 31 mg/dL (9.8-20.1); Calc. Creatinine Clearance 16 mL/min (70-130); Calcium 8.3 mg/dL (7.8-10.44); Carbon Dioxide 23 mmol/L (22-29); Chloride 101 mmol/L (98-107); Estimated GFR 12; Glucose 102 mg/dL (70-105); Potassium 5.8 mmol/L (3.5-5.1); Sodium 136 mmol/L (136-145)
[2024-10-13 10:02] LABS: #Basophils Less than 0.03 10x3/uL (0.0-0.2); %Basophils 0.2 % (0.0-1.0); %Eosinophils 0.7 % (0.0-10.0); %Lymphocytes 23.1 % (21.0-51.0); %Monocytes 3.8 % (0.0-10.0); %Neutrophils 71.5 % (42.0-75.0); Hematocrit 32.3 % (36.0-47.0); Hemoglobin 10.2 g/dL (12.0-16.0); Mean Corpuscular HGB CONC 31.6 g/dL (32.0-36.0); Mean Corpuscular Hemoglobin 29.5 pg (27.0-31.0); Mean Corpuscular Volume 93.4 fL (78.0-98.0); Platelet Count 131 10x3/uL (130-400); RBC Distribution Width 17.4 % (11.5-14.5); Red Blood Cell (RBC) Count 3.46 mill/uL (4.20-5.40)
[2024-10-13 10:23] LABS: Anion Gap 22 mmol/L (10-20); BUN (Urea Nitrogen) 41 mg/dL (9.8-20.1); Calc. Creatinine Clearance 13 mL/min (70-130); Calcium 8.8 mg/dL (7.8-10.44); Carbon Dioxide 20 mmol/L (22-29); Chloride 101 mmol/L (98-107); Estimated GFR 10; Glucose 112 mg/dL (70-105); Potassium 5.5 mmol/L (3.5-5.1); Sodium 137 mmol/L (136-145)
[2024-10-13] MEDS: Lactulose 20 GM (30 mL) UDCUP PO SCH (10:25)
[2024-10-13] MEDS: LOKELMA 10 GM PACKET PO SCH (10:26)
[2024-10-13 17:10] VITALS: BMI 24.9
[2024-10-13] MEDS ORDERED: Acetaminophen 325 MG TAB PO PRN (19:12)
[2024-10-14] MEDS: Amlodipine 10 MG TAB PO SCH (08:30)
[2024-10-14] MEDS ORDERED: OXYCODONE HCL PO PRN (09:31)
[2024-10-14 09:50] LABS: #Basophils Less than 0.03 10x3/uL (0.0-0.2); %Eosinophils 1.1 % (0.0-10.0); %Monocytes 5.8 % (0.0-10.0); %Neutrophils 77.7 % (42.0-75.0); Hemoglobin 7.8 g/dL (12.0-16.0); Mean Corpuscular HGB CONC 32.5 g/dL (32.0-36.0); Mean Corpuscular Hemoglobin 30.1 pg (27.0-31.0); Mean Corpuscular Volume 92.7 fL (78.0-98.0); Platelet Count 117 10x3/uL (130-400); RBC Distribution Width 17.4 % (11.5-14.5); Red Blood Cell (RBC) Count 2.59 mill/uL (4.20-5.40)
[2024-10-14 10:08] LABS: Anion Gap 19 mmol/L (10-20); BUN (Urea Nitrogen) 49 mg/dL (9.8-20.1); Calc. Creatinine Clearance 12 mL/min (70-130); Calcium 8.2 mg/dL (7.8-10.44); Carbon Dioxide 23 mmol/L (22-29); Chloride 101 mmol/L (98-107); Estimated GFR 8; Glucose 102 mg/dL (70-105); Potassium 4.7 mmol/L (3.5-5.1); Sodium 138 mmol/L (136-145)
[2024-10-14] MEDS: oxyCODONE 5 MG TAB PO PRN (14:51)
[2024-10-14 15:36] VITALS: BP 101/66; TEMP 98.2
[2024-10-15] MEDS ORDERED: Pantoprazole 40 MG DR.TAB PO SCH (09:00)
== END 2024-10-14 17:01 | DRG 870 ==
LOC: ERS 11:35 → CCU 15:28 → SURG A 10-02 15:19
PROVIDERS: ADMIT Family Medicine; ATTEND Internal Medicine
PROC: XX20X89 Monitoring of Brain Electrical Activity, Computer-aided Detection and Notification, New Technology Group 9 (ICD-10-PCS; principal; 2024-09-24)
PROC: 5A1955Z Respiratory Ventilation, Greater than 96 Consecutive Hours (ICD-10-PCS; 2024-09-24)
PROC: 0T9B70Z Drainage of Bladder with Drainage Device, Via Natural or Artificial Opening (ICD-10-PCS; 2024-09-24)
PROC: 0DH67UZ Insertion of Feeding Device into Stomach, Via Natural or Artificial Opening (ICD-10-PCS; 2024-09-24)
PROC: 3E0G76Z Introduction of Nutritional Substance into Upper GI, Via Natural or Artificial Opening (ICD-10-PCS; 2024-09-24)
PROC: 0BH17EZ Insertion of Endotracheal Airway into Trachea, Via Natural or Artificial Opening (ICD-10-PCS; 2024-09-24)
PROC: 4A133R1 Monitoring of Arterial Saturation, Peripheral, Percutaneous Approach (ICD-10-PCS; 2024-09-24)
PROC: 30233J1 Transfusion of Nonautologous Serum Albumin into Peripheral Vein, Percutaneous Approach (ICD-10-PCS; 2024-09-25)
PROC: 3E03329 Introduction of Other Anti-infective into Peripheral Vein, Percutaneous Approach (ICD-10-PCS; 2024-09-25)
PROC: 30233N1 Transfusion of Nonautologous Red Blood Cells into Peripheral Vein, Percutaneous Approach (ICD-10-PCS; 2024-09-26)
PROC: 06HY33Z Insertion of Infusion Device into Lower Vein, Percutaneous Approach (ICD-10-PCS; 2024-09-27)
PROC: 30233R1 Transfusion of Nonautologous Platelets into Peripheral Vein, Percutaneous Approach (ICD-10-PCS; 2024-09-27)
PROC: 5A09357 Assistance with Respiratory Ventilation, Less than 24 Consecutive Hours, Continuous Positive Airway Pressure (ICD-10-PCS; 2024-10-01)
PROC: 0JH60XZ Insertion of Tunneled Vascular Access Device into Chest Subcutaneous Tissue and Fascia, Open Approach (ICD-10-PCS; 2024-10-10)
PROC: 05HM33Z Insertion of Infusion Device into Right Internal Jugular Vein, Percutaneous Approach (ICD-10-PCS; 2024-10-10)
PROC: B543ZZA Ultrasonography of Right Jugular Veins, Guidance (ICD-10-PCS; 2024-10-10)
PROC: 5A1D70Z Performance of Urinary Filtration, Intermittent, Less than 6 Hours Per Day (ICD-10-PCS; 2024-10-10)
PROC: 3E033XZ Introduction of Vasopressor into Peripheral Vein, Percutaneous Approach (ICD-10-PCS; 2024-10-10)
DX: A41.9 Sepsis, unspecified organism (principal); G93.41 Metabolic encephalopathy; I21.A1 Myocardial infarction type 2; J18.9 Pneumonia, unspecified organism; K72.00 Acute and subacute hepatic failure without coma; N17.0 Acute kidney failure with tubular necrosis; J96.02 Acute respiratory failure with hypercapnia; N18.6 End stage renal disease; J96.01 Acute respiratory failure with hypoxia; E87.4 Mixed disorder of acid-base balance; J44.0 Chronic obstructive pulmonary disease with (acute) lower respiratory infection; J44.1 Chronic obstructive pulmonary disease with (acute) exacerbation; F41.9 Anxiety disorder, unspecified; F32.A Depression, unspecified; F17.210 Nicotine dependence, cigarettes, uncomplicated; E87.5 Hyperkalemia; G89.4 Chronic pain syndrome; Z96.653 Presence of artificial knee joint, bilateral; Z98.890 Other specified postprocedural states; Z90.49 Acquired absence of other specified parts of digestive tract; Z90.710 Acquired absence of both cervix and uterus; D63.1 Anemia in chronic kidney disease; K76.82 Hepatic encephalopathy; R29.6 Repeated falls; G40.909 Epilepsy, unspecified, not intractable, without status epilepticus; S22.42XD Multiple fractures of ribs, left side, subsequent encounter for fracture with routine healing; H11.31 Conjunctival hemorrhage, right eye
CPT/HCPCS: 36415; 36416; 36430; 36556; 36600; 51702; 70450; 71045; 71250; 74018; 74177; 74230; 76705; 80048; 80053; 80076; 80164; 80202; 80299; 80306; 80307; 81001; 82140; 82533; 82550; 82728; 82805; 83540; 83550; 83605; 83690; 83735; 83880; 83970; 84100; 84145; 84439; 84443; 84481; 84484; 85025; 85049; 85060; 85300; 85362; 85384; 85610; 85730; 86141; 86580; 86704; 86706; 86803; 86850; 86900; 86901; 87040; 87077; 87086; 87149; 87186; 87340; 87633; 90656; 90935; 93005; 93306; 94002; 94003; 94640; 94660; 96365; 96366; 96368; 96375; 99292; C1752; G0257; J0132; J0171; J0613; J0665; J0690; J0692; J1100; J1644; J1720; J1815; J1953; J2060; J2185; J2405; J2470; J2704; J3010; J3370; J3371; J3475; J7030; J7042; J7050; J7070; J7620; J7999; P9016; P9035; P9045; P9047; Q5105